=== PATIENT | female | born 1955 | race Caucasian/White ===

== ENCOUNTER 2020-03-31 20:52 | Inpatient (IN) ==
--- OUTSIDE RECORDS SUMMARY | 2020-03-31 20:55 | External Medical Summary | Continuity of Care Document ---
:1955 Author Name Nasima Mckinney Address Unavailable Unavailable , Care Team Providers Name Role Phone Juan José Cesar [email or web address] Problems Active medical history not documented Allergies and Adverse Reactions Allergy history not documented Medications Medications not documented Procedures Procedures not documented Immunizations Immunizations not documented Plan of Treatment Planned Observations Planned Goals not documented Results No Known Results Results not documented Encounters Appointment; Stas Cesar M.D. 20-Sep-2010 10:00 Encounter Diagnosis: Problem not documented
[2020-03-31] MEDS ORDERED: ONDANSETRON INJ 2 MG/ML 2 ML VIAL IV STA ×2 (21:25→22:36)
--- NOTE | 2020-03-31 21:29 | Emergency Department Note ---
History of Present Illness General Chief complaint: Abdominal Pain Stated complaint: ABDOMINAL PAIN,NAUSEA,VOMTING,CHILLS Time Seen by Provider: 03/31/20 21:15 Source: patient History of Present Illness Provider complaint: Abdominal pain Onset (ago): hour(s) Location: abdomen Radiation: back Severity: severe Pain Consistency: + constant Maximum Pain Intensity: 7 Quality: + other (Crampy nauseous pain) Relieved By: + other (Vomiting) Associated symptoms: + fever/chills (She feels warm whenever she gets this pain but does not have a temperature) and + nausea/vomiting; no chest pain and no shortness of breath This is a 64-year-old female presents with abdominal pain for the past 2 hours. She describes it as a crampy pain across her entire abdomen with radiation to her back. It is associated with vomiting. She states that vomiting makes her feel better. She rates her pain a 7 out of 10 in severity. She denies any diarrhea or urinary symptoms. She has had no fevers but states that she feels very warm when she gets these episodes. She states in total she has had 6 episodes of this type of pain. She last had an episode about a month ago. She is scheduled to have a CAT scan next week of her abdomen and pelvis but her pain started 2 hours ago and so she presented here. She feels better now that she is vomited. She denies any surgeries to her abdomen. She denies any chest pain or shortness of breath although has a history of asthma. She denies any cough or cold symptoms or known COVID-19 exposure. Past Med/Surg History Medical History Asthma Social History Preferred Language: Indonesian Feels Safe at Home: Yes Smoking Status: Never smoker Review of Systems See HPI for pertinent positives & negatives. and A total of 10 systems reviewed and were otherwise negative Physical Exam Vital Signs Vital Signs - 24 hr 03/31/20 20:54 03/31/20 21:45 03/31/20 21:56 Temperature 36.5 C Temperature Source Oral Pulse Rate 86 86 82 Pulse Rate [Right] Pulse Rate from SpO2 Sensor 81 Pulse Rhythm Regular Pulse Rhythm [Right] Pulse Strength [Right] Respiratory Rate 16 16 14 Respiratory Effort / Characteristics Respiratory Depth Blood Pressure 179/102 H 186/102 H Blood Pressure [Right Arm] Blood Pressure Mean 127 153 Blood Pressure Mean [Right Arm] Blood Pressure Position [Right Arm] Pulse Oximetry 99 99 98 Oxygen Delivery Method Room Air Room Air Room Air Sepsis Recent Fever Within 48 Hours No Sepsis New/Unexplained Change in Mental Status No Sepsis Action Taken by Nursing No Action Required 03/31/20 22:39 03/31/20 23:28 Temperature Temperature Source Pulse Rate Pulse Rate [Right] 88 90 Pulse Rate from SpO2 Sensor Pulse Rhythm Pulse Rhythm [Right] Regular Regular Pulse Strength [Right] Normal Normal Respiratory Rate 16 16 Respiratory Effort / Characteristics Non-Labored Spontaneous Non-Labored Spontaneous Respiratory Depth Normal Normal Blood Pressure Blood Pressure [Right Arm] 163/93 H 161/97 H Blood Pressure Mean Blood Pressure Mean [Right Arm] 116 118 Blood Pressure Position [Right Arm] Lying Lying Pulse Oximetry 97 97 Oxygen Delivery Method Room Air Room Air Sepsis Recent Fever Within 48 Hours Sepsis New/Unexplained Change in Mental Status Sepsis Action Taken by Nursing Constitutional: Vital signs reviewed. Eyes: Pupils are equal round reactive to light. Conjunctiva are noninjected. ENT: Pharynx is clear without erythema or exudate. Mucous membranes are dry. Neck supple without meningeal signs. Respiratory: Clear to auscultation bilaterally. Breath sounds are equal bilaterally. Cardiovascular: Regular rate and rhythm. No rubs or gallops. GI: Soft, nondistended and nontender. Bowel sounds are present. Musculoskeletal: No peripheral edema. No lower extremity tenderness. Integumentary: No cyanosis. or jaundice. Neurological: The patient is awake and alert. No focal deficits. Psychiatric: Normal affect. Not anxious appearing. Course Administered Medications Ioversol (Optiray 320 100ml) 94 ml IV ONCE PRN PRN Reason: Interaction Checking Stop: 04/04/20 23:23 Last Admin: 03/31/20 23:24 Dose: 94 ml Documented by: [id number] Discontinued Medications Morphine Sulfate (Morphine Sulfate) 4 mg IV NOW STA Stop: 03/31/20 23:42 Last Admin: 03/31/20 23:53 Dose: 4 mg Documented by: [id number] Nitroglycerin (Nitrostat) 0.4 mg SL NOW STA Stop: 03/31/20 22:37 Last Admin: 03/31/20 22:39 Dose: 0.4 mg Documented by: [id number] Nitroglycerin (Nitrostat) Confirm Administered Dose 0.4 mg .ROUTE .STK-MED ONE Stop: 03/31/20 22:38 Last Admin: 03/31/20 22:39 Dose: Not Given Documented by: [id number] Ondansetron HCl (Zofran) 4 mg IV NOW STA Stop: 03/31/20 21:26 Last Admin: 03/31/20 22:00 Dose: 4 mg Documented by: [id number] Ondansetron HCl (Zofran) 4 mg IV NOW STA Stop: 03/31/20 22:37 Last Admin: 03/31/20 22:39 Dose: 4 mg Documented by: [id number] Medical Decision Making Differential Diagnosis Gastritis, PUD, pancreatitis, cholelithiasis, bowel obstruction, kidney stone Medical Records Attestation: I reviewed the patient's medical records. I did perform a limited focused review of portions of the patient's old chart on the electronic medical record. The patient has had no recent pertinent visits to this hospital. Home Medications Current Medication List: was personally reviewed by me Laboratory Data Attestation: I reviewed the patient's lab results. Result diagrams: 03/31/20 21:55 03/31/20 21:55 Lab Results 03/31/20 03/31/20 Range/Units 21:55 21:55 WBC 10.21 (4.8-10.8) K/uL RBC 4.18 L (4.2-5.4) M/uL Hgb 13.5 (12.0-16.0) g/dL Hct 39.3 (37-47) % MCV 94.0 (80-100) fL MCH 32.3 (25-34) pg MCHC 34.4 (32-36) g/dL RDW Std Deviation 46.5 H (36.4-46.3) fL RDW Coeff of Bladimir 13.5 (11.5-14.5) % Plt Count 220 (130-400) K/uL MPV 10.3 (7.4-10.4) fL Immature Gran % (Auto) 0.4 % Neut % (Auto) 73.0 % Lymph % (Auto) 18.9 % [place] % (Auto) 4.9 % Eos % (Auto) 2.4 % Baso % (Auto) 0.4 % Neut # (Auto) 7.45 H (1.4-6.5) K/uL Lymph # (Auto) 1.93 (1.2-3.4) K/uL [place] # (Auto) 0.50 (0.11-0.59) K/uL Eos # (Auto) 0.25 (0-0.5) K/uL Baso # (Auto) 0.04 (0-0.2) K/uL Immature Gran # (Auto) 0.04 H (0.00-0.02) K/uL Sodium 140 (136-145) mmol/L Potassium 3.4 L (3.5-5.1) mmol/L Chloride 104 (98-107) mmol/L Carbon Dioxide 28 (21-32) mmol/L Anion Gap 8.0 (3-11) BUN 25 H (7-18) mg/dl Creatinine 1.11 (0.6-1.2) mg/dl Est Cr Clr Drug Dosing 53.5 ml/min Est GFR ( Amer) 59.9 Est GFR (Non-Af Amer) 51.7 BUN/Creatinine Ratio 22.9 H (10-20) Glucose 113 H (70-99) mg/dl Calcium 9.5 (8.5-10.1) mg/dl Total Bilirubin 0.4 (0.2-1) mg/dl AST 14 L (15-37) U/L ALT 25 (12-78) U/L Alkaline Phosphatase 73 (45-117) U/L Troponin I < 0.015 (0-0.045) ng/ml Total Protein 8.3 H (6.4-8.2) gm/dl Albumin 4.3 (3.4-5.0) gm/dl Globulin 4.0 (2.5-4.0) gm/dl Albumin/Globulin Ratio 1.1 (0.9-2) Lipase 205 (73-393) U/L Imaging Data Attestation: I personally reviewed and interpreted this imaging study as follows: My Impression: Chest x-ray per my interpretation shows no acute cardiopulmonary process. Large hiatal hernia is noted. Radiologist's Impression: CT ABDOMEN & PELVIS With Contrast: There is a large hiatal hernia measuring 14 cm containing approximately one half thing stomach. There is some mild adjacent lower lung atelectasis. Mild fatty infiltration of the liver. No focal liver lesion is seen. The bladder, pancreas, spleen, and adrenal glands appear unremarkable. The kidneys enhance symmetrically with contrast. There is suggestion of several small parapelvic renal cysts on the left measuring up to 1 cm. Bowel loops are nondilated no signs of acute appendicitis. There is mild diverticulosis of the sigmoid colon. No acute inflammatory process is seen wi thin the mesenteric fat of the abdomen or pelvis. The uterus, adnexa, and urinary bladder appear unremarkable. Mild degenerative changes in the lumbar spine. No fracture or bone lesion is seen. Radiologist: Gonzalo Mcintyre MD Study ready at 23:29 and initial results transmitted at 23:54 ECG Data Attestation: I personally reviewed and interpreted this ECG as follows: Indication: + abdominal pain Rate (beats per minute): 80 Rhythm: + normal sinus ECG Intervals/blocks: no First degree AV block and no Left bundle branch block ECG ST segments: + ST depression (Anterolateral); no ST elevation ECG Findings: no PVCs Comparison ECG Date: no prior available Additional Comments: Repeat twelve-lead EKG per my interpretation performed at 2225 shows normal sinus rhythm with a rate of 82 bpm. There are persistent ST depressions in the anterior lateral leads without ST elevations. No PVCs or evidence of bundle branch block. Blood Pressure Blood Pressure Findings: Elevated blood pressure Blood Pressure Disposition: Referred to patients primary care provider [facility] Narrative I did evaluate the patient as noted above. IV access was established. I did treat her with Zofran IV. I did order and personally review the patient's 12- lead EKG as described above. She does have some ST depressions in the anterior lateral leads. No old EKGs available for comparison. She later developed some left upper chest pain. She describes it as a tightness. She felt extremely nauseated and vomited again. I did give her additional Zofran IV. She was also given 1 sublingual nitroglycerin. I did repeat a twelve-lead EKG which per my interpretation shows similar findings as the prior one done today. I was able to get an old EKG from the [facility] and she did have significant ST depressions in the anterior lateral leads in January 29, 2018. On reevaluation her chest pain is resolved with the nitroglycerin. I did order and personally reviewed the images of the patient's chest x-ray as described above. Hiatal hernia is noted by myself. There is no infiltrate. I did order a urine analysis. This is pending. I did order and review the patient's blood work as noted in the electronic medical record. I did order a CT of the abdomen and pelvis. I did review the images myself as well as the radiology report as de scribed above. She has a large hiatal hernia which was visible on x-ray. There is otherwise no acute intra-abdominal process. There is no bowel obstruction or appendicitis. I did reevaluate the patient. She is still having abdominal pain and very nauseated. She was given morphine IV after which she felt better. She is no longer having any chest discomfort. I did recommend hospitalization for further care and evaluation. I did discuss the case with the hospitalist and block and case maker. Impression & Plan Abdominal pain, Hernia, hiatal, Intractable vomiting, Left-sided chest pain, Abnormal ECG Discharge Plan Visit Data Chief Complaint: Abdominal Pain Stated Complaint: ABDOMINAL PAIN,NAUSEA,VOMTING,CHILLS ED Provider: Teto Brooke Discharge Problem: Abdominal pain, Hernia, hiatal, Intractable vomiting, Left-sided chest pain, Abnormal ECG Patient Disposition: Being Evaluated by Hospitalist Forms Stand Alone Forms: [facility] Referrals Referrals: Ling Nolasco DO [Primary Care Provider] -
[2020-03-31 22:28] LABS: Basophils # (auto) 0.04 K/uL (0-0.2); Basophils % (auto) 0.4 %; Eosinophils # (auto) 0.25 K/uL (0-0.5); Eosinophils % (auto) 2.4 %; Hematocrit (blood only) 39.3 % (37-47); Hemoglobin 13.5 g/dL (12.0-16.0); Immature Granulocytes # (auto) 0.04 K/uL (0.00-0.02); Immature Granulocytes % (auto) 0.4 %; Lymphocytes # (auto) 1.93 K/uL (1.2-3.4); Lymphocytes % (auto) 18.9 %; Mean Corpuscular Hemoglobin 32.3 pg (25-34); Mean Corpuscular Hgb Conc 34.4 g/dL (32-36); Mean Platelet Volume 10.3 fL (7.4-10.4); Monocytes % (auto) 4.9 %; Neutrophils # (auto) 7.45 K/uL (1.4-6.5); Platelet Count 220 K/uL (130-400); RDW Coefficient of Variation 13.5 % (11.5-14.5); RDW Standard Deviation 46.5 fL (36.4-46.3); Red Blood Count 4.18 M/uL (4.2-5.4); White Blood Count 10.21 K/uL (4.8-10.8)
[2020-03-31 22:29] LABS: Alanine Aminotransferase 25 U/L (12-78); Albumin Level 4.3 gm/dl (3.4-5.0); Aspartate Aminotransferase 14 U/L (15-37); BUN Creatinine Ratio 22.9 (10-20); Blood Urea Nitrogen 25 mg/dl (7-18); Calcium 9.5 mg/dl (8.5-10.1); Carbon Dioxide 28 mmol/L (21-32); Chloride 104 mmol/L (98-107); Creatinine Clr Calc Pharmacy 53.5 ml/min; Est GFR (African American) 59.9; Est GFR (Non-African American) 51.7; Glucose 113 mg/dl (70-99); Lipase 205 U/L (73-393); Potassium 3.4 mmol/L (3.5-5.1); Sodium 140 mmol/L (136-145)
[2020-03-31 22:32] LABS: Albumin Globulin Ratio 1.1 (0.9-2); Alkaline Phosphatase 73 U/L (45-117); Bilirubin,Total 0.4 mg/dl (0.2-1); Total Protein 8.3 gm/dl (6.4-8.2)
[2020-03-31] MEDS ORDERED: NITROGLYCERIN SL 0.4 MG/TAB TAB SL STA (22:36)
[2020-03-31] MEDS ORDERED: NITROGLYCERIN SL 0.4 MG/TAB TAB ONE (22:37)
[2020-03-31 22:55] LABS: Troponin I < 0.015 ng/ml (0-0.045)
[2020-03-31] MEDS ORDERED: IOVERSOL 100ml IV PRN (23:24)
[2020-03-31] MEDS ORDERED: MoRPHine SULFATE 4 MG/ML 1 ML CARP\\VIAL IV STA (23:41)
--- NOTE | 2020-04-01 02:47 | History and Physical Report ---
DATE OF ADMISSION: 04/01/2020 CHIEF COMPLAINT: Abdominal pain. HISTORY OF PRESENT ILLNESS: This is a 64-year-old female with past medical history significant for impaired fasting glucose, hyperlipidemia, could not tolerate statin, allergic rhinitis, history of coronary artery disease, palpitation, polymyalgia rheumatica, factor V Leiden mutation, iron deficiency anemia, monoclonal paraproteinemia, who presents with abdominal pain. The patient says she has had the abdominal pain before, but since evening she had severe abdominal pain and several episodes of vomiting and some questionable blood in the vomitus. Later in the ER, she also complained of some chest pain relieved with nitro, but patient says she pulled some weights and she had shoulder sprain and she is not bothered about chest pain currently. The patient had a stress test done in 2015 which was unremarkable. CAT scan in the ER showed large hiatal hernia. Denies any headache, no blurred vision, no sore throat, no cough, no shortness of breath. Normal bowel and bladder movements. No rash seen. Currently resting comfortably and hemodynamically stable. ALLERGIES: LIPITOR, LISINOPRIL. PAST MEDICAL HISTORY: As mentioned above. PAST SURGICAL HISTORY: , colonoscopy, dental surgery, breast implants. MEDICATION: Losartan 50 mg p.o. daily. FAMILY HISTORY: Significant for mother had osteoporosis, from blood clots. Mother was positive for factor V Leiden deficiency, mother also had diabetes. Father had colon cancer. SOCIAL HISTORY: Single. No smoking. Alcohol 1-2 glasses of red wine daily. No drug use. REVIEW OF SYSTEMS: As per HPI. Rest of the review of systems negative. PHYSICAL EXAMINATION: GENERAL: The patient is of moderate build, not in acute distress. VITAL SIGNS: Temperature 36.5, pulse 80, respiratory rate 16, blood pressure is 180/103, oxygen 95% on room air. HEENT: No pallor, no icterus. NECK: No JVD, no neck masses. CARDIOVASCULAR: S1, S2 heard. Regular rate and rhythm, no murmur, no gallop. RESPIRATORY SYSTEM: Normal AP diameter. No accessory muscle use. No wheezing, no crackles. ABDOMEN: Soft, bowel sounds present, nontender. No distention. CENTRAL NERVOUS SYSTEM: Cranial nerves II-XII grossly intact, nonfocal. EXTREMITIES: No edema, no erythema. LABORATORY DATA: WBC 10.2, hemoglobin 13.5, hematocrit 39.3, platelets 220. Sodium 140, potassium 3.4, chloride 104, bicarbonate 28, BUN 25, creatinine 1.1, serum glucose 113, calcium 9.5, total bilirubin 0.4, AST 14, ALT 25, alkaline phosphatase 73, troponin I less than 0.015, lipase 205. IMAGING DATA: CT of abdomen and pelvis, large hiatal hernia. Chest x-ray, no acute findings. EKG: Normal sinus rhythm, rate of 80, nonspecific ST abnormalities. ASSESSMENT AND PLAN: This is a 64-year-old female who presents with abdominal pain. 1. Abdominal pain with several episodes of nausea, vomiting. Large hiatal hernia and a question of hematemesis. We will place her on IV Protonix drip. Currently, hemoglobin is stable. We will consult GI in a.m. Keep her n.p.o., IV fluids, IV antiemetics p.r.n., IV Dilaudid p.r.n. 2. Questionable chest pain. The patient says she pulled some weights at home and had shoulder discomfort that is resolved now. She is not worried about it. Initial cardiac enzymes and EKG unremarkable. We will do serial cardiac enzymes and monitor in the med tele. 3. Hypertension. Continue losartan. 4. Prediabetes Follow Ha1bc. 4. Deep venous thrombosis prophylaxis, sequential compression devices for now. 5. Disposition: Admit to [facility]. Level 1 full code. Expect to discharge home and follow with family doctor. DAVID
[2020-04-01] MEDS ORDERED: NITROGLYCERIN SL 0.4 MG/TAB TAB SL PRN (02:59)
[2020-04-01] MEDS ORDERED: ACETAMINOPHEN 325 MG TAB PO PRN (02:59)
[2020-04-01] MEDS: SODIUM CHLORIDE 0.9% 1000ML 1,000 ML IV SCH ×4 (03:15→21:58)
[2020-04-01] MEDS: ONDANSETRON INJ 2 MG/ML 2 ML VIAL IV PRN ×3 (03:21→19:54)
[2020-04-01] MEDS: POTASSIUM CHLORIDE / WTR 10 MEQ/100 ML PLCT IV SCH ×2 (03:53→04:55)
[2020-04-01] MEDS: HYDROmorphone INJ 0.5 MG/0.5 ML SYR IV PRN ×2 (03:53→07:54)
[2020-04-01] MEDS: PANTOprazole 40 MG in DEXTROSE 5% 100 ML IV SCH ×3 (03:54→14:16)
[2020-04-01] MEDS ORDERED: PANTOprazole 40 MG in SYRINGE 0 ML IV ONE (04:00)
[2020-04-01 06:37] LABS: Appearance Urine Clear (Clear); Bacteria Urine Automated Negative (Negative); Bilirubin Urine Negative (Negative); Blood Urine Negative (Negative); Cast Urine Automated 0 /lpf (0-5); Color Urine Yellow; Glucose Urine UA Negative (Negative); Ketones Urine Negative (Negative); Leukocyte Esterase Urine Negative (Negative); Nitrite Urine Negative (Negative); Protein Urine Trace (Negative); RBC Urine Automated 0-4 /hpf (0-4); Specific Gravity Urine > 1.045 (1.000-1.030); Urobilinogen Urine Negative (Negative)
--- NOTE | 2020-04-01 07:39 | Electrocardiogram Report ---
Test Reason : Blood Pressure : / mmHG Vent. Rate : 080 BPM Atrial Rate : 080 BPM P-R Int : 144 ms QRS Dur : 086 ms QT Int : 402 ms P-R-T Axes : 040 025 015 degrees QTc Int : 463 ms Normal sinus rhythm Nonspecific ST abnormality Abnormal ECG No previous ECGs available Confirmed by Peter Ghosh ([id number]) on 04/01/2020 7:39:00 AM Referred By: REFERRED SELF Confirmed By:Peter Ghosh
--- NOTE | 2020-04-01 08:31 | CT Scan Report ---
CT abd pelvis IV con only CLINICAL HISTORY: Generalized abdominal pain COMPARISON STUDY: None. TECHNIQUE: Patient was scanned in a dynamic helical fashion during intravenous administration of 94 c c of Optiray 320. A dose lowering technique was utilized adhering to the principles of ALARA. CT DOSE: 533.27 mGy.cm FINDINGS: Lower chest: There are bilateral breast implants. There is a large hiatal hernia. There is mild basil ar atelectasis. Liver: The contrast-enhanced liver is normal in size, contour, and attenuation. There is no intrahepa tic biliary ductal dilatation. The hepatic veins and portal veins are patent. Gallbladder: Unremarkable. Spleen: Normal in size and attenuation. Pancreas: Unremarkable. Adrenal glands: Unremarkable. Kidneys: There are bilateral parapelvic renal cysts. No solid renal masses are visualized. Bowel: There are no transition zones indicate bowel obstruction. There is colonic diverticulosis. The re are no acute peridiverticular inflammatory changes. There is no evidence of acute appendicitis. Peritoneum: There is no intraperitoneal free air or abdominal ascites. Vasculature: The abdominal aorta is normal in course and caliber. Adenopathy: None. Pelvic viscera: The bladder, and pelvic viscera are unremarkable. Skeletal structures: There is an old fracture the left inferior pubic ramus. No destructive lesions a re visualized. IMPRESSION: 1. Large fluid-filled hiatal hernia 2. No evidence of bowel obstruction. No evidence of free air 3. No evidence of acute diverticulitis. No evidence of acute appendicitis. ACT 112: Negative or not required by law. Electronically signed by: Franco Guzman M.D. 04/01/2020 8:30 AM
[2020-04-01] MEDS: LOSARTAN POTASSIUM 50 MG TAB PO SCH (08:35)
--- NOTE | 2020-04-01 08:35 | XRay Report ---
XR chest 1V portable CLINICAL HISTORY: Atypical chest pain COMPARISON STUDY: No previous studies for comparison. FINDINGS: There is a large hiatal hernia. There are basilar opacities, likely atelectatic. There is n o failure. There is no lobar consolidation.[There are no large pleural effusions. IMPRESSION: 1. Large hiatal hernia 2. Increased basilar markings likely atelectatic ACT 112: Negative or not required by law. Electronically signed by: Franco Guzman M.D. 04/01/2020 8:34 AM
--- NOTE | 2020-04-01 08:51 | Hospitalist Progress Note ---
Date of Service April 01, 2020 Assessment & Plan (1) Abdominal pain: (2) Hernia, hiatal: (3) Intractable vomiting: (4) Left-sided chest pain: Nausea, vomiting and abd pain likely related to hiatal hernia Concern for GI bleeding due to reports of "brownish" or [place] ground Chest pain reported seems musculoskeletal. Trop/EKG unremarkable. Will monitor Will monitor Hb Currently of PPI IV Awaiting GI eval IV zofran. Monitor QTc Continue IVF Await AM labs (5) Hypertension: Pain control Continue home losartan DVT ppx -SCD for now Admission and Anticipated Discharge Date Admission Date: April 01, 2020 Subjective Patient seen and examined Still having nausea and vomiting Reported vomiting has been dark brownish. Still having abdominal pain Reported she had some left sided chest pain during packing. She referred to this as muscle soreness from packing/moving things which have currently resolved Denied any fevers,chills Denied any diarrhea Physical Exam Constitutional: no acute distress Eyes: PERRL, conjunctivae normal, anicteric sclerae ENMT: external ear and nose normal, oropharynx normal Respiratory: normal respiratory effort, lungs clear to auscultation Cardiovascular: RRR, no murmur, no edema Gastrointestinal (Abdomen): Inspection/Auscultation: abdomen normal to inspection and normal bowel sounds; abdomen not distended Percussion/Palpation: + abdomen tender (Mild ) and abdomen soft; no guarding and abdomen not rigid Neurologic: PERRL, EOMI, accommodation nl, no face palsy, no dysarthria Psychiatric: A+Ox3, euthymic affect Results & Data Results & Data ([facility]) Vital Signs (Past 12 Hours) Vital Signs Temp Pulse Pulse Resp BP BP BP 04/01/20 07:47 36.9 C 79 17 164/91 H 04/01/20 02:59 36.4 C L 88 16 175/96 H 04/01/20 02:09 82 16 178/101 H 04/01/20 01:05 80 16 180/103 H 03/31/20 23:28 90 16 161/97 H 03/31/20 22:39 88 16 163/93 H 03/31/20 21:56 82 14 186/102 H 03/31/20 21:45 86 16 03/31/20 20:54 36.5 C 86 16 179/102 H Pulse Ox Pulse Ox 04/01/20 07:47 95 04/01/20 02:59 95 95 04/01/20 02:09 99 04/01/20 01:05 99 03/31/20 23:28 97 03/31/20 22:39 97 03/31/20 21:56 98 03/31/20 21:45 99 03/31/20 20:54 99 Laboratory Results Laboratory Results - last 24 hr 03/31/20 03/31/20 04/01/20 21:55 21:55 06:18 WBC 10.21 RBC 4.18 L Hgb 13.5 Hct 39.3 MCV 94.0 MCH 32.3 MCHC 34.4 RDW Std Deviation 46.5 H RDW Coeff of Bladimir 13.5 Plt Count 220 MPV 10.3 Immature Gran % (Auto) 0.4 Neut % (Auto) 73.0 Lymph % (Auto) 18.9 [place] % (Auto) 4.9 Eos % (Auto) 2.4 Baso % (Auto) 0.4 Neut # (Auto) 7.45 H Lymph # (Auto) 1.93 [place] # (Auto) 0.50 Eos # (Auto) 0.25 Baso # (Auto) 0.04 Immature Gran # (Auto) 0.04 H Sodium 140 Potassium 3.4 L Chloride 104 Carbon Dioxide 28 Anion Gap 8.0 BUN 25 H Creatinine 1.11 Est Cr Clr Drug Dosing 53.5 Est GFR ( Amer) 59.9 Est GFR (Non-Af Amer) 51.7 BUN/Creatinine Ratio 22.9 H Glucose 113 H Calcium 9.5 Total Bilirubin 0.4 AST 14 L ALT 25 Alkaline Phosphatase 73 Troponin I < 0.015 Total Protein 8.3 H Albumin 4.3 Globulin 4.0 Albumin/Globulin Ratio 1.1 Lipase 205 Urine Color Yellow Urine Appearance Clear Urine pH 7.0 Ur Specific [place] > 1.045 H Urine Protein Trace H Urine Glucose (UA) Negative Urine Ketones Negative Urine Blood Negative Urine Nitrite Negative Urine Bilirubin Negative Urine Urobilinogen Negative Ur Leukocyte Esterase Negative Urine WBC (Auto) 1-5 Urine RBC (Auto) 0-4 U Hyaline Cast (Auto) 0 U Epithel Cells (Auto) 10-20 H Urine Bacteria (Auto) Negative Diagnostic Findings CT Abd/P 1. Large fluid-filled hiatal hernia 2. No evidence of bowel obstruction. No evidence of free air 3. No evidence of acute diverticulitis. No evidence of acute appendicitis. (1) Intractable vomiting Nausea presence: with nausea Vomiting type: unspecified Qualified Code(s): R11.2 - Nausea with vomiting, unspecified (2) Abdominal pain Abdominal location: generalized Qualified Code(s): R10.84 - Generalized abdominal pain
[2020-04-01 08:58] LABS: Basophils # (auto) 0.04 K/uL (0-0.2); Basophils % (auto) 0.5 %; Eosinophils # (auto) 0.05 K/uL (0-0.5); Eosinophils % (auto) 0.6 %; Immature Granulocytes # (auto) 0.01 K/uL (0.00-0.02); Immature Granulocytes % (auto) 0.1 %; Lymphocytes # (auto) 1.28 K/uL (1.2-3.4); Lymphocytes % (auto) 16.1 %; Mean Corpuscular Hgb Conc 33.3 g/dL (32-36); Mean Platelet Volume 10.3 fL (7.4-10.4); Monocytes # (auto) 0.67 K/uL (0.11-0.59); Monocytes % (auto) 8.4 %; Neutrophils # (auto) 5.91 K/uL (1.4-6.5); Neutrophils % (auto) 74.3 %; Platelet Count 210 K/uL (130-400); RDW Coefficient of Variation 13.6 % (11.5-14.5); RDW Standard Deviation 47.3 fL (36.4-46.3); Red Blood Count 3.75 M/uL (4.2-5.4); White Blood Count 7.96 K/uL (4.8-10.8)
[2020-04-01] MEDS ORDERED: PANTOprazole 40 MG in SYRINGE 0 ML IV SCH ×2 (09:00→21:00)
[2020-04-01 09:35] LABS: BUN Creatinine Ratio 20.9 (10-20); Blood Urea Nitrogen 18 mg/dl (7-18); Calcium 8.4 mg/dl (8.5-10.1); Carbon Dioxide 28 mmol/L (21-32); Chloride 107 mmol/L (98-107); Est GFR (African American) 83.9; Est GFR (Non-African American) 72.4; Glucose 146 mg/dl (70-99); Magnesium 2.1 mg/dl (1.8-2.4); Sodium 140 mmol/L (136-145); Troponin I < 0.015 ng/ml (0-0.045)
--- NOTE | 2020-04-01 11:04 | Gastrointestinal Consultation ---
Date of Consultation April 01, 2020 Assessment & Plan (1) Intractable vomiting: Patient with large hiatal hernia and vomiting, needs urgent EGD to r/o Gastric volvulus. Continue IV PPI. Eventually she will need surgical repair. (2) Abdominal pain: (3) Hernia, hiatal: History of Present Illness Attending Physician: Cici Salinas MD 64 years old female patient with medical comorbids of HTN, presented to the hospital with sudden onset severe epigastric pain with nausea and intractable vomiting and an episode of hematemesis. Pain is sharp, nonradiating, seems it got aggravated after heavy lifting. Still has vomiting today. No prior EGD. CT scan showed large hiatal hernia filled with fluid. PMHx: hyperlipidemia, coronary artery disease, polymyalgia rheumatica, factor V Leiden mutation. PAST SURGICAL HISTORY: , colonoscopy, dental surgery, breast implants. MEDICATION: Losartan 50 mg p.o. daily. FAMILY HISTORY: Noncontributory. SOCIAL HISTORY: No smoking or alcohol abuse. Allergies Allergy/AdvReac Type Severity Reaction Status Date / Time No Known Allergies Allergy Unverified 04/01/20 00:25 Home Medications Home Medications Medication Instructions Recorded Confirmed Type losartan 50 mg PO DAILY 04/01/20 04/01/20 History Patient History Medical History Asthma Social History Preferred Language: [place] Communication Ability: Effective It Senior Analyst Required: No Beliefs That Will Affect Care: None Current Living Situation: Significant Other Other Information That Helps Us Care for You: No Feels Safe at Home: Yes Safety Concerns: Feels Safe At This Time Smoking Status: Never smoker Do You Dip or Chew Tobacco: No ; Second Hand Exposure: No ; Tobacco Cessation Education Requested by Patient: No Hx Alcohol Use: Yes Alcohol type: beer Hx Substance Use: No Review of Systems Constitutional: no fever, no chills, no fatigue and no weight loss Eyes: no eye pain and no worsening vision Ear, Nose, Mouth, Throat: no tinnitus, no dizziness, no nasal discharge and no epistaxis Respiratory: no cough, no dyspnea, no dyspnea on exertion and no wheezing Cardiovascular: no chest pain, no orthopnea, no palpitations and no edema Gastrointestinal: as per Subjective / HPI Genitourinary: no dysuria, no urinary frequency, no urinary incontinence and no hematuria Musculoskeletal: no stiffness and no myalgia Neurologic: no localized weakness, no paralysis, no tremor(s) and no headache(s) Endocrine: no polydipsia and no polyuria Hematologic / Lymphatic: no easy bleeding and no night sweats Physical Exam Constitutional: + well hydrated, cooperative and comfortable Eyes: PERRL, conjunctivae normal, anicteric sclerae ENMT: external ear and nose normal, oropharynx normal Neck: normal visual inspection and trachea midline Respiratory: normal respiratory effort, lungs clear to auscultation Auscultation: no wheezes Cardiovascular: RRR, no murmur, no edema Gastrointestinal (Abdomen): normal bowel sounds, soft, nontender, no hepatosplenomegaly Musculoskeletal: no cyanosis or clubbing, extremities motor strength 5/5 Skin: no rashes, warm and dry Neurologic: awake; no focal motor deficits Motor/Sensory: no tremor Results & Data ([facility]) Vital Signs (Past 12 Hours) Vital Signs Temp Pulse Pulse Resp BP BP BP 04/01/20 07:50 78 04/01/20 07:47 36.9 C 79 17 164/91 H 04/01/20 02:59 36.4 C L 88 16 175/96 H 04/01/20 02:09 82 16 178/101 H 04/01/20 01:05 80 16 180/103 H 03/31/20 23:28 90 16 161/97 H Pulse Ox Pulse Ox 04/01/20 07:50 04/01/20 07:47 95 04/01/20 02:59 95 95 04/01/20 02:09 99 04/01/20 01:05 99 03/31/20 23:28 97 (1) Intractable vomiting Nausea presence: with nausea Vomiting type: unspecified Qualified Code(s): R11.2 - Nausea with vomiting, unspecified (2) Abdominal pain Abdominal location: generalized Qualified Code(s): R10.84 - Generalized abdominal pain
[2020-04-01 11:09] LABS: Estimated Average Glucose 126 mg/dl
[2020-04-01] MEDS ORDERED: ONDANSETRON INJ 2 MG/ML 2 ML VIAL ONE (12:03)
[2020-04-01] MEDS ORDERED: SUCCINYLCHOLINE 100MG/5ML SYR IV ONE (12:03)
[2020-04-01] MEDS ORDERED: fentaNYL citrate 100 MCG/2 ML VIAL ONE (12:03)
[2020-04-01] MEDS ORDERED: LIDOCAINE HCL 2% 2 ML VIAL/AMP(20MG/ML) INFIL ONE (12:03)
[2020-04-01] MEDS ORDERED: PROPOFOL IV EMULSION 10 MG/ML 20 ML VIAL IV ONE (12:03)
--- NOTE | 2020-04-01 12:15 | Anesthesiology Consultation ---
Date of Service April 01, 2020 Assessment & Plan Chart Review Chart Review: Acceptable Risk for Surgery and Patient NOT seen in Pre Admission Testing Consults Requested none ASA [id number] Proposed Anesthesia Anesthesia Type: General Risk / Benefits Reviewed With: PT / POA / Parent / Guardian, Accepts Plan and Informed Consent Obtained Additional Comments: not covid tested History Surgery Operation Date: 04/01/20 12:00 Proposed Procedures p EGD Hemostasis - Juan Gonsalez MD Height/Weight Height: 5 ft 6 in Weight: 79.4 kg Allergies Allergy/AdvReac Type Severity Reaction Status Date / Time No Known Allergies Allergy Unverified 04/01/20 00:25 Medications Home Medications Medication Instructions Recorded Confirmed Last Taken losartan 50 mg PO DAILY 04/01/20 04/01/20 Unknown Active Medications Generic Name Dose Route Start Last Admin Trade Name Freq PRN Reason Stop Dose Admin Acetaminophen 650 mg 04/01/20 02:59 04/01/20 06:15 Tylenol PO 05/01/20 02:58 650 mg Q4H PRN Administration Pain or Fever Hydromorphone HCl 0.5 mg 04/01/20 02:59 04/01/20 07:54 Dilaudid IV 04/15/20 02:58 0.5 mg Q4H PRN Administration Pain Sodium Chloride 1,000 mls @ 125 mls/hr 04/01/20 02:59 04/01/20 11:29 Nss 1000ml IV 05/01/20 02:58 125 mls/hr .Q8H NUNU Administration Pantoprazole Sodium 40 mg/ 100 mls @ 20 mls/hr 04/01/20 04:00 04/01/20 08:35 Dextrose IV 05/01/20 03:14 8 mg/hr Q5H NUNU 20 mls/hr Administration 8 MG/HR Losartan Potassium 50 mg 04/01/20 09:00 04/01/20 08:35 Cozaar PO 05/01/20 08:59 50 mg DAILY NUNU Administration Ondansetron HCl 4 mg 04/01/20 02:59 04/01/20 10:43 Zofran IV 05/01/20 02:58 4 mg Q6H PRN Administration Nausea NPO Date Last Intake of Fluids: 04/01/20 Time Last Intake of Fluids: 08:30 Last Intake of Fluids Comment: sip with AM medication Past Medical History Medical History Asthma Exercise / Class Metabolic Activity II 4-5 Yardwork/Stairs/Walk up hill Past Anesthesia History No Hx of Anesthesia Complications and No Family Hx of Anesthesia Complications History of PONV No Hx of PONV and No Hx of Motion Sickness Social History Smoking Status: Never smoker Do You Dip or Chew Tobacco: No Hx Alcohol Use: Yes Alcohol type: beer alcohol intake frequency: 0-2 drinks per day Hx Substance Use: No substance use type: does not use Physical Exam Vital Signs Last Vital Signs Temp 36.7 C 04/01/20 11:25 Pulse 80 04/01/20 11:25 Resp 17 04/01/20 11:25 BP 160/84 H 04/01/20 11:25 Pulse Ox 93 04/01/20 11:25 Constitutional + obese ENMT Mouth: + dental restorations; no dentition abnormality Thyromental Distance: > or= 3.5 Finger Breadths Mallampati Class: II Neck normal visual inspection and trachea midline; neck extension not limited Respiratory normal respiratory effort Auscultation: lungs clear to auscultation bilaterally Cardiovascular Rate/Rhythm: regular rate and regular rhythm Heart Sounds: no murmur Vessels: no carotid bruit Musculoskeletal Spine: normal cervical ROM Extremities: extremities normal to inspection Neurologic moves all extremities Motor/Sensory: no sensory deficit Psychiatric Orientation: alert and oriented x 3 Testing Laboratory Results 04/01/20 08:45 04/01/20 08:45 Hemoglobin A1c 6.0 % (4.5-5.6) H 04/01/20 08:45 Urine Color Yellow 04/01/20 06:18 Urine Appearance Clear (Clear) 04/01/20 06:18 Urine pH 7.0 (4.5-7.5) 04/01/20 06:18 Ur Specific [place] > 1.045 (1.000-1.030) H 04/01/20 06:18 Urine Protein Trace (Negative) H 04/01/20 06:18 Urine Glucose (UA) Negative (Negative) 04/01/20 06:18 Urine Ketones Negative (Negative) 04/01/20 06:18 Urine Nitrite Negative (Negative) 04/01/20 06:18 Ur Leukocyte Esterase Negative (Negative) 04/01/20 06:18 Urine WBC (Auto) 1-5 /hpf (0-5) 04/01/20 06:18 Urine RBC (Auto) 0-4 /hpf (0-4) 04/01/20 06:18 U Hyaline Cast (Auto) 0 /lpf (0-5) 04/01/20 06:18 U Epithel Cells (Auto) 10-20 /lpf (0-5) H 04/01/20 06:18 Urine Bacteria (Auto) Negative (Negative) 04/01/20 06:18 Electrocardiogram Date: 03/31/20 Findings: + NSR @ (at 80;NS ST abnl) Chest X-Ray Date: 03/31/20 Findings: + NAD large hiatal hernia
--- NOTE | 2020-04-01 12:25 | History & Physical Bridge Note ---
Date of Service April 01, 2020 History & Physical Bridge Note I have examined the patient, reviewed the History & Physical and in the interval since the performance of the History & Physical I have noted the following changes of clinical significance: no changes noted
[2020-04-01] MEDS ORDERED: DEXAMETHASONE SOD INJ 4 MG/ML VIAL ONE (12:43)
[2020-04-01] MEDS ORDERED: METOCLOPRAMIDE HCL INJ 5 MG/ML 2 ML VIAL IV STA (13:08)
[2020-04-01] MEDS ORDERED: METOCLOPRAMIDE HCL INJ 5 MG/ML 2 ML VIAL ONE (13:08)
--- NOTE | 2020-04-01 13:12 | Operative Report ---
Post Operative Report Pre & Post Diagnosis Operation Date: 04/01/20 12:00 Pre-Op Diagnosis: Abdominal Pain Post-Op Diagnosis: Abdominal Pain I identified the patient and participated in the time-out.: Yes Procedure Operation Date: 04/01/20 12:00 Actual Procedures p EGD Hemostasis(Not Applicable) - Juan Gonsalez MD Surgeon Juan Gonsalez MD Flash Welding Machine Operator None Estimated Blood Loss 0 Findings See Below (Large hiatal hernia, few gastric ulcers) Specimens None Description of Procedure EGD I attest to the content of the Intraoperative Record and any orders documented therein. Any exceptions are noted below.
[2020-04-01] MEDS ORDERED: NALOXONE HCL 0.4 MG/1 ML VIAL/CARP IV PRN (13:43)
[2020-04-01] MEDS ORDERED: PROMETHAZINE HCL 12.5 MG in SODIUM CHLORIDE 0.9% 50 ML IV PRN (13:43)
[2020-04-01] MEDS ORDERED: ATROPINE SULFATE 0.1 MG/ML 10ML SYR IV PRN (13:43)
[2020-04-01] MEDS ORDERED: FLUMAZENIL 0.1 MG/1 ML 10 ML VIAL IV PRN (13:43)
[2020-04-01] MEDS ORDERED: LABETALOL HCL IV 5 MG/ML 20ML IV PRN (13:43)
[2020-04-01] MEDS ORDERED: ePHEDrine sulfate 50 MG/ML AMP IV PRN (13:43)
[2020-04-01] MEDS ORDERED: fentaNYL citrate 100 MCG/2 ML VIAL IV PRN (13:43)
--- NOTE | 2020-04-01 13:58 | Anesthesiology Progress Note ---
Date of Service April 01, 2020 Anesthesia Post Procedure Vital Signs Vital Signs: Temp Pulse Pulse Pulse Resp BP BP 04/01/20 13:45 82 18 147/81 H 04/01/20 13:39 36.0 C L 90 13 126/80 04/01/20 12:12 18 178/110 H 04/01/20 11:25 36.7 C 80 17 160/84 H 04/01/20 07:50 78 04/01/20 07:47 36.9 C 79 17 164/91 H 04/01/20 02:59 36.4 C L 88 16 175/96 H 04/01/20 02:09 82 16 178/101 H 04/01/20 01:05 80 16 03/31/20 23:28 90 16 03/31/20 22:39 88 16 03/31/20 21:56 82 14 186/102 H 03/31/20 21:45 86 16 03/31/20 20:54 36.5 C 86 16 179/102 H BP Pulse Ox Pulse Ox 04/01/20 13:45 97 04/01/20 13:39 93 04/01/20 12:12 95 04/01/20 11:25 93 04/01/20 07:50 04/01/20 07:47 95 04/01/20 02:59 95 95 04/01/20 02:09 99 04/01/20 01:05 180/103 H 99 03/31/20 23:28 161/97 H 97 03/31/20 22:39 163/93 H 97 03/31/20 21:56 98 03/31/20 21:45 99 03/31/20 20:54 99 Pain Intensity Abdomen: Pain Intensity: 7 Transfer of Care Handoff Completed per policy Notes Mental Status: alert / awake / arousable Patient Amnestic to Procedure: Yes Nausea / Vomiting: adequately controlled Pain: adequately controlled Airway Patency, RR, SpO2: stable & adequate BP & HR: stable & adequate Hydration State: stable & adequate Anesthetic Complications: no major complications apparent
--- NOTE | 2020-04-01 14:22 | GI REPORT ---
Patient Name: Ivy Altamirano Procedure Date: 04/01/2020 12:05 PM Date of : 1955 Admit Type: Inpatient Age: 64 Gender: Female Attending MD: Juan Gonsalez MD Procedure: Upper GI endoscopy Providers: Juan Gonsalez MD Referring MD: Cici Salinas Md Indications: Hematemesis, Abnormal CT of the GI tract Medicines: General Anesthesia Complications: No immediate complications. Estimated Blood Loss: Estimated blood loss: none. Procedure: Pre-Anesthesia Assessment: - Prior to the procedure, a History and Physical was performed, and patient medications, allergies and sensitivities were reviewed. The patient's tolerance of previous anesthesia was reviewed. - The risks and benefits of the procedure and the sedation options and risks were discussed with the patient. All questions were answered and informed consent was obtained. - Patient identification and proposed procedure were verified prior to the procedure by the physician and the nurse. The procedure was verified in the procedure room. - Pre-procedure physical examination revealed no contraindications to sedation. After obtaining informed consent, the endoscope was passed under direct vision. Throughout the procedure, the patient's blood pressure, pulse, and oxygen saturations were monitored continuously. The Endoscope was introduced through the mouth, and advanced to the second part of duodenum. The upper GI endoscopy was accomplished without difficulty. The patient tolerated the procedure well. Findings: The Z-line was regular and was found 35 cm from the incisors. The esophagus was shortened and tortous. 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 A 5 cm hiatal hernia was found. A medium amount of food (residue) was found in the gastric fundus precluding adequate visualization. . Multiple non-bleeding erosions were found in the gastric body and in the gastric antrum. There were no stigmata of recent bleeding. One non-bleeding cratered gastric ulcer with no stigmata of bleeding was found in the gastric antrum. The lesion was 8 mm in largest dimension. The duodenal bulb and second portion of the duodenum were normal. Impression: - 5 cm hiatal hernia. No gastric volvulous. - A medium amount of food (residue) in the stomach. - Non-bleeding gastric ulcer with no stigmata of bleeding. - Normal duodenal bulb and second portion of the duodenum. Recommendation: - [facility] patient to [facility]. - Clear liquid diet today, then advance as tolerated to full liquid diet then should stay on soft diet till she gets surgical hiatal hernia repair. - Use a proton pump inhibitor IV daily for today then switch to a proton pump inhibitor PO BID for 2 months. - Use metoclopramide 10 mg PO BID for 2 weeks. - Repeat upper endoscopy in 6 weeks to check healing. - Refer to an MIS surgeon at [facility] [place] for hiatal hernia repair. - Avoid NSAIDs. - Recall GI if needed. Juan Gonsalez MD 04/01/2020 2:22:06 PM This report has been signed electronically. Note Initiated On: 04/01/2020 12:05 PM Number of Addenda: 0 I attest to the content of the Intraoperative Record and orders documented therein, exceptions below {[id number]}
[2020-04-01] MEDS ORDERED: HYDROmorphone INJ 0.5 MG/0.5 ML SYR IV PRN (16:07)
[2020-04-01] MEDS ORDERED: TRAMADOL HCL 50 MG TABLET PO PRN (21:29)
[2020-04-02] MEDS: SODIUM CHLORIDE 0.9% 1000ML 1,000 ML IV SCH (06:03)
[2020-04-02 06:09] LABS: Hematocrit (blood only) 29.3 % (37-47); Hemoglobin 9.7 g/dL (12.0-16.0); Mean Corpuscular Hemoglobin 32.6 pg (25-34); Mean Corpuscular Hgb Conc 33.1 g/dL (32-36); Mean Corpuscular Volume 98.3 fL (80-100); Mean Platelet Volume 10.2 fL (7.4-10.4); Platelet Count 172 K/uL (130-400); RDW Coefficient of Variation 13.7 % (11.5-14.5); RDW Standard Deviation 48.9 fL (36.4-46.3); Red Blood Count 2.98 M/uL (4.2-5.4); White Blood Count 10.04 K/uL (4.8-10.8)
[2020-04-02 06:48] LABS: BUN Creatinine Ratio 14.3 (10-20); Calcium 7.2 mg/dl (8.5-10.1); Creatinine Clr Calc Pharmacy 80.9 ml/min; Est GFR (African American) 99.5; Est GFR (Non-African American) 85.8; Potassium 3.7 mmol/L (3.5-5.1)
[2020-04-02] MEDS ORDERED: METOCLOPRAMIDE HCL 5 MG/5 ML UDP PO SCH (08:00)
[2020-04-02] MEDS: LOSARTAN POTASSIUM 50 MG TAB PO SCH (08:39)
--- NOTE | 2020-04-02 08:45 | Discharge Summary ---
Date of Service April 02, 2020 Admission HPI Per Admitting Provider 64-year-old female with past medical history significant for impaired fasting glucose, hyperlipidemia, could not tolerate statin, allergic rhinitis, history of coronary artery disease, palpitation, polymyalgia rheumatica, factor V Leiden mutation, iron deficiency anemia, monoclonal paraproteinemia, who presents with abdominal pain. The patient says she has had the abdominal pain before, but since evening she had severe abdominal pain and several episodes of vomiting and some questionable blood in the vomitus. Later in the ER, she also complained of some chest pain relieved with nitro, but patient says she pulled some weights and she had shoulder sprain and she is not bothered about chest pain currently. The patient had a stress test done in 2016 which was unremarkable. CAT scan in the ER showed large hiatal hernia. Denies any headache, no blurred vision, no sore throat, no cough, no shortness of breath. Normal bowel and bladder movements. No rash seen. Currently resting comfortably and hemodynamically stable. Admission Exam Per Admitting Provider GENERAL: The patient is of moderate build, not in acute distress. VITAL SIGNS: Temperature 36.5, pulse 80, respiratory rate 16, blood pressure is 180/103, oxygen 95% on room air. HEENT: No pallor, no icterus. NECK: No JVD, no neck masses. CARDIOVASCULAR: S1, S2 heard. Regular rate and rhythm, no murmur, no gallop. RESPIRATORY SYSTEM: Normal AP diameter. No accessory muscle use. No wheezing, no crackles. ABDOMEN: Soft, bowel sounds present, nontender. No distention. CENTRAL NERVOUS SYSTEM: Cranial nerves II-XII grossly intact, nonfocal. EXTREMITIES: No edema, no erythema. Principal Diagnosis Hiatal hernia Gastric ulcer Discharge Exam Constitutional no acute distress Eyes PERRL, conjunctivae normal, anicteric sclerae ENMT external ear and nose normal, oropharynx normal Respiratory normal respiratory effort, lungs clear to auscultation Cardiovascular RRR, no murmur, no edema Gastrointestinal (Abdomen) Inspection/Auscultation: abdomen normal to inspection and normal bowel sounds; abdomen not distended Percussion/Palpation: abdomen soft; abdomen nontender Neurologic PERRL, EOMI, accommodation nl, no face palsy, no dysarthria Psychiatric A+Ox3, euthymic affect Discharge Data Allergies Allergy/AdvReac Type Severity Reaction Status Date / Time No Known Allergies Allergy Unverified 04/01/20 00:25 Consultations 04/01/20 00:04 ED Decision to Admit Stat 04/01/20 02:59 Consult Case Management - Discharge Planning Routine 04/01/20 08:00 Consult Gastroenterology Routine Procedures Performed Operation Date: 04/01/20 12:00 Actual Procedures p EGD Hemostasis(Not Applicable) - Juan Gonsalez MD Ordered Studies 03/31/20 21:25 CT abd pelvis IV con only Urgent FINDINGS: Lower chest: There are bilateral breast implants. There is a large hiatal hernia. There is mild basilar atelectasis. Liver: The contrast-enhanced liver is normal in size, contour, and attenuation. There is no intrahepatic biliary ductal dilatation. The hepatic veins and portal veins are patent. Gallbladder: Unremarkable. Spleen: Normal in size and attenuation. Pancreas: Unremarkable. Adrenal glands: Unremarkable. Kidneys: There are bilateral parapelvic renal cysts. No solid renal masses are visualized. Bowel: There are no transition zones indicate bowel obstruction. There is colonic diverticulosis. There are no acute peridiverticular inflammatory changes. There is no evidence of acute appendicitis. Peritoneum: There is no intraperitoneal free air or abdominal ascites. Vasculature: The abdominal aorta is normal in course and caliber. Adenopathy: None. Pelvic viscera: The bladder, and pelvic viscera are unremarkable. Skeletal structures: There is an old fracture the left inferior pubic ramus. No destructive lesions are visualized. IMPRESSION: 1. Large fluid-filled hiatal hernia 2. No evidence of bowel obstruction. No evidence of free air 3. No evidence of acute diverticulitis. No evidence of acute appendicitis. Hospital Course (1) Abdominal pain: (2) Hernia, hiatal: (3) Intractable vomiting: (4) Left-sided chest pain: Nausea, vomiting and abd pain related to hiatal hernia and gastric ulcer CT abd/pelvis showed large hiatal hernia. Due to concern for GI bleeding due to reports of "brownish" or cofffee ground, patient had EGD EGD showed hiatal hernia and a nonbleeding gastric ulcer. Was initially placed on PPI drip. Nausea and vomiting were managed with medications All patient's symptoms have resovled this AM Discharged on pantoprazole 40mg bid for 2 months and metocloperamide bid per GI recommendations. Patient needs follow up with General surgery for evaluation of hiatal hernia options (5) Hypertension: Continue home losartan Total Time Total Time Spent Total Time Spent (In Minutes): 35 Total Time Includes: Examination of the Patient, Discharge Planning and Medication Reconciliation Discharge Plan Discharge Items Patient Disposition: Home - Self-Care Reason For Visit: ABDOMINAL PAIN Discharge Diagnosis: Hiatal hernia Gastric ulcer Activity: Resume your previous activity Non-emergency contact: Primary Care Provider, Surgeon and Speech Pathologist Call non-emergency contact if: you have any medication questions Follow-up/Referrals: Ling Nolasco, [Primary Care Provider] - Diet: Heart Healthy Diet Texture: Dental soft (bite-sized) Addtl Attending Provider Instructions: Ms Altamirano. You came to the hospital complaining of severe nausea, vomiting and abdominal pain. You were evaluated, also had endoscopy (EGD) and found to have hiatal hernia and stomach ulcer. Your symptoms were managed with medications. You are being discharged on new medications (Pantoprazole 40mg twice daily for 2 months and metocloperamide) Please follow up with General surgeon for evaluation for possible repair of the hiatal hernia. Please follow up with Gastroenterology. It was a pleasure taking care of you. Pending Studies at Discharge: No Stand-Alone Forms: [employer], Smoking Cessation Medications and DC Order Prescriptions: New metoclopramide HCl 5 mg/5 mL Solution 5 mg PO BID@0730,1630 7 Days Qty: 473 RF: 0 pantoprazole 40 mg Tablet,Delayed Release (Dr/Ec) 40 mg PO BID 60 Days Qty: 120 RF: 0 Continued losartan 50 mg tablet 50 mg PO DAILY RF: 0 Discharge Orders: Discharge Order (Routine); Ordered 04/02/20 Ordered By: Cici Salinas Admission Data Admit Date/Time: 04/01/20 01:19 Attending Provider: Cici Salinas I. Admit Provider: Michael Cuevas Primary Care Provider: Ling Nolasco Other Providers: Michael High ; Michael Cuevas ; Corby Irene ; Brandie Lin ; Latasha Daniels ; Scarlett Marks ; Igor Jacob ; Geina Bellamy ; Dorota Townsend ; Juliane Gil ; Stas Spivey ; Kye Ward ; Carol Cook ; Lisa Weinberg ; Le Olivera ; Rosie Goncalves ; Juan Gonsalez Other Interventions: Discharge Summary Assessment (RN) Last Done: 04/02/20 12:00 DC Date/Time DO NOT enter until pt leaves facility: 04/02/20 13:02
[2020-04-02] MEDS ORDERED: PANTOprazole 40 MG TAB PO SCH (09:00)
--- NOTE | 2020-04-02 13:04 | Electrocardiogram Report ---
Test Reason : Blood Pressure : / mmHG Vent. Rate : 079 BPM Atrial Rate : 079 BPM P-R Int : 142 ms QRS Dur : 084 ms QT Int : 418 ms P-R-T Axes : 071 077 074 degrees QTc Int : 479 ms Normal sinus rhythm Normal ECG When compared with ECG of 31-MAR-2020 21:42, Nonspecific ST abnormality has resolved Confirmed by Igor Berry ([id number]) on 04/02/2020 1:04:46 PM Referred By: REFERRED SELF Confirmed By:Igor Berry
== END 2020-04-02 13:02 | disposition home or self-care (01) | DRG 392 ==
LOC: ED 20:52 → 2N 04-01 01:19 → SUATTDRO 04-01 01:19 → 2N 04-01 02:09

== ENCOUNTER 2023-01-03 21:25 | Inpatient (IN) ==
[2023-01-03] MEDS ORDERED: SODIUM CHLORIDE 0.9% 1000ML 1,000 ML IV ONE (21:47)
[2023-01-03 22:25] LABS: Basophils # (auto) 0.09 K/uL (0-0.2); Basophils % (auto) 1.1 %; Eosinophils # (auto) 0.23 K/uL (0-0.50); Eosinophils % (auto) 2.8 %; Hematocrit (blood only) 35.4 % (37.0-47.0); Hemoglobin 12.2 g/dl (12.0-16.0); Immature Granulocytes # (auto) 0.05 K/uL (0.01-0.20); Immature Granulocytes % (auto) 0.6 %; Lymphocytes # (auto) 1.96 K/uL (1.2-3.4); Lymphocytes % (auto) 24.1 %; Mean Corpuscular Hemoglobin 33.1 pg (25.0-34.0); Mean Corpuscular Hgb Conc 34.5 g/dL (32.0-36.0); Mean Corpuscular Volume 95.9 fL (80.0-100.0); Mean Platelet Volume 10.1 fL (9.4-12.4); Monocytes # (auto) 0.45 K/uL (0.11-0.59); Monocytes % (auto) 5.5 %; Neutrophils # (auto) 5.36 K/uL (1.40-6.50); Neutrophils % (auto) 65.9 %; Platelet Count 207 K/uL (130-400); RDW Coefficient of Variation 13.9 % (11.5-14.5); RDW Standard Deviation 48.9 fL (36.4-46.3); Red Blood Count 3.69 M/uL (4.20-5.40); White Blood Count 8.14 K/ul (4.8-10.8)
--- NOTE | 2023-01-03 22:43 | XRay Report ---
LEFT TIBIA AND FIBULA 2 VIEWS; LEFT ANKLE 2 VIEWS CLINICAL HISTORY: Left leg injury and deformity. FINDINGS: Crosstable AP and lateral views of the left tibia and fibula with crosstable AP and lateral views of the left ankle are obtained. No prior studies are available for comparison at the time of d ictation. The skeletal structures are osteopenic. There is a displaced and comminuted spiral fracture of the distal tibial diaphysis. There is lateral displacement of the distal fragment by up to 1.5 cm , as well as overriding of the fragments. There is also a displaced and comminuted spiral fracture of the distal fibular shaft. The proximal tibia and fibula appear intact. No fracture is seen at the an kle joint. There has been buttress plate fixation of the distal fibular shaft. The orthopedic hardwar e appears intact. The ankle mortise is intact. The knee joint is grossly maintained. There is a dorsa l calcaneal enthesophyte. IMPRESSION: Displaced and comminuted spiral fractures of the distal tibial and fibular shafts as abov e with overlying soft tissue edema. Electronically signed by: Ahmet Rojas M.D. 01/03/2023 10:41 PM
[2023-01-03 22:49] LABS: Albumin Globulin Ratio 1.4 (0.9-2); Albumin Level 4.4 gm/dl (3.4-5.0); BUN Creatinine Ratio 19.8 (10-20); Bilirubin,Total 0.4 mg/dl (0.2-1.0); Est GFR (African American) 69.9 ml/min; Est GFR (Non-African American) 60.3 ml/min; Globulin 3.2 gm/dl (2.5-4.0); Potassium 4.3 mmol/L (3.5-5.1); Total Protein 7.6 gm/dl (6.0-8.3)
[2023-01-03] MEDS ORDERED: MoRPHine SULFATE 4 MG/ML 1 ML CARP\\VIAL IV STA (23:27)
[2023-01-03] MEDS ORDERED: ONDANSETRON INJ 2 MG/ML 2 ML VIAL IV STA (23:27)
--- NOTE | 2023-01-04 00:11 | Emergency Department Note ---
Impression & Plan Closed fracture of left tibia and fibula ED Provider Note CHIEF COMPLAINT: Ankle pain HISTORY OF PRESENT ILLNESS: This 67-year-old patient presents to the emergency department via ambulance after sustaining an injury to the low ankle and foot. The patient states she was doing "absolutely nothing" and has no idea how she fractured the ankle. She does report a history of osteoporosis and notes that the ankle just broke. She denies any falls or trauma. She denies changing positions or getting up from a sitting position or sitting from a standing position. She states she was doing yard work throughout the day and then went inside to make soup. She states she was using bourbon and gavino's to try to treat the pain unsuccessfully. She notes she thought she could go to bed and it would be better in the morning, but decided to come to the emergency department instead the patient complains of no pain on initial evaluation. The patient denies pain of the foot. The patient rates the pain as nothing and 0/10 on initial evaluation. The patient is not able to bear weight on the foot. No knee pain, the patient is able to move their toes. No numbness or weakness of the foot, no laceration. The patient has had a previous fracture to this ankle, she notes it was 30 or 40 years ago. The patient has taken no medication for the pain. The patient denies any other injury. REVIEW OF SYSTEMS: A 6 system review of systems was completed with positives and pertinent negatives listed in the HPI. ALLERGIES: None PHYSICAL EXAM: Vital Signs: Reviewed Nurse's notes, vital signs stable. GENERAL: This is a 67-year-old, no acute distress, but appears in pain, well-developed, well-nourished. MENTAL STATUS: Alert, oriented to person place and time, and cooperative. MUSCULOSKELETAL: The left ankle deformed, the foot is externally rotated. There is tenting of the skin on the medial aspect of the distal tibia. There is no specific fifth metatarsal tenderness. There is no tenderness over the rest of the foot. There is no calf or tibia/fibular tenderness. There is no visual deformity. The foot and toes are warm and well- perfused. Dorsalis pedis pulse 2+. Sensation to pain and light touch is intact. Capillary refill less than 2 seconds. EMERGENCY DEPARTMENT COURSE: I examined the patient. IV access obtained, labs drawn. X-rays of the left tib/fib and ankle were reviewed by myself and read by radiology and reveal distal tibia and fibula fracture as noted. I discussed the case with Dr. Figueroa. I discussed the case with Dr. Bello orthopedic markel saleh unified communications engineer. He recommends we reduce the fracture and place the patient into a posterior leg with stirrup splint. I discussed this recommendation with Dr. Figueroa. The patient was medicated with IV morphine. Dr. Figueroa did reduce the fracture. An orthoglass splint as above was applied to the ankle under my direction and the position was satisfactory. Neurovascular status was rechecked by me and intact. Postreduction films completed and reviewed by myself, showing satisfactory positioning of the fracture with overlying splint, per my interpretation. The patient does not feel that she will be able to manage this injury at home over the weekend. She does feel that she will need inpatient care. I discussed this with Dr. Bello and he agreed to admit the patient. Please see orthopedics dictation regarding ongoing management care of this patient. DIFFERENTIAL DIAGNOSIS: Fracture, subluxation, dislocation, contusion, ligamentous injury, neurovascular, compartment syndrome, as well as other pathologies. I attest that I have personally reviewed the patient's current medication list. Blood Pressure Screening: Patient was found to have a slightly elevated blood pressure due to circumstances. I do not believe that the patient requires hypertension monitoring. The chart was completed utilizing [employer] Speech voice recognition software. Grammatical errors, random word insertions, pronoun errors, and incomplete sentences are an occasional consequence of this system due to software limitations, ambient noise, and hardware issues. Any formal questions or concerns about the content, text, or information contained within the body of this dictation should be directly addressed to the provider for clarification. 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 Beliefs That Will Affect Care: None marital status: Single Current Living Situation: Significant Other Feels Safe at Home: Yes Assistive Devices: None Allergies Allergies Allergy/AdvReac Type Severity Reaction Status Date / Time No Known Allergies Allergy Unverified 05/08/20 17:29 Home Meds Home Medications Medication Instructions Recorded Confirmed losartan 50 mg tablet 75 mg PO DAILY 04/01/20 01/04/23 albuterol sulfate 90 mcg/actuation 90 mcg inhalation Q4H PRN wheezing 01/04/23 01/04/23 aerosol inhaler aspirin 81 mg chewable tablet 81 mg PO DAILY 01/04/23 01/04/23 fluticasone 100 mcg-salmeterol 50 1 inh inhalation BID 01/04/23 01/04/23 mcg/dose blistr powdr for inhalation (Wixela Inhub) fluticasone propionate 50 2 spray intranasal DAILY PRN 01/04/23 01/04/23 mcg/actuation nasal Allergic Symptoms spray,suspension Results & Data (ED) Vital Signs Vital Signs - 24 hr 01/03/23 21:40 01/03/23 21:40 01/03/23 22:53 Temperature 36.7 C 36.7 C Temperature Source Oral Oral Pulse Rate 77 70 Pulse Rate [Apical] Pulse Rate from SpO2 Sensor Respiratory Rate 18 18 18 Respiratory Effort / Characteristics Non-Labored Spontaneous Respiratory Depth Normal Respiratory Pattern Blood Pressure 163/86 H Blood Pressure [Right Arm] 163/86 H Blood Pressure Mean 111 Blood Pressure Mean [Right Arm] 111 Blood Pressure Position Lying Blood Pressure Position [Right Arm] Lying Pulse Oximetry 96 96 94 Oxygen Delivery Method Room Air Room Air Room Air Oxygen Flow Rate Sepsis Recent Fever Within 48 Hours No Sepsis New/Unexplained Change in Mental Status No Sepsis Action Taken by Nursing No Action Required 01/03/23 22:53 01/04/23 00:00 01/04/23 01:00 Temperature Temperature Source Pulse Rate 85 Pulse Rate [Apical] 81 Pulse Rate from SpO2 Sensor 85 Respiratory Rate 18 18 16 Respiratory Effort / Characteristics Non-Labored Spontaneous Respiratory Depth Normal Respiratory Pattern Regular Blood Pressure 191/112 H Blood Pressure [Right Arm] 135/72 141/81 H Blood Pressure Mean 138 Blood Pressure Mean [Right Arm] 93 101 Blood Pressure Position Blood Pressure Position [Right Arm] Pulse Oximetry 94 98 98 Oxygen Delivery Method Room Air Nasal Cannula Nasal Cannula Oxygen Flow Rate 2 2 Sepsis Recent Fever Within 48 Hours Sepsis New/Unexplained Change in Mental Status Sepsis Action Taken by Nursing Laboratory Data 01/03/23 21:58 01/03/23 21:58 Lab Results 01/03/23 01/03/23 01/04/23 Range/Units 21:58 21:58 00:14 WBC 8.14 (4.8-10.8) K/ul RBC 3.69 L (4.20-5.40) M/uL Hgb 12.2 (12.0-16.0) g/dl Hct 35.4 L (37.0-47.0) % MCV 95.9 (80.0-100.0) fL MCH 33.1 (25.0-34.0) pg MCHC 34.5 (32.0-36.0) g/dL RDW Std Deviation 48.9 H (36.4-46.3) fL RDW Coeff of Bladimir 13.9 (11.5-14.5) % Plt Count 207 (130-400) K/uL MPV 10.1 (9.4-12.4) fL Immature Gran % (Auto) 0.6 % Neut % (Auto) 65.9 % Lymph % (Auto) 24.1 % Porter % (Auto) 5.5 % Eos % (Auto) 2.8 % Baso % (Auto) 1.1 % Neut # (Auto) 5.36 (1.40-6.50) K/uL Lymph # (Auto) 1.96 (1.2-3.4) K/uL Porter # (Auto) 0.45 (0.11-0.59) K/uL Eos # (Auto) 0.23 (0-0.50) K/uL Baso # (Auto) 0.09 (0-0.2) K/uL Immature Gran # (Auto) 0.05 (0.01-0.20) K/uL Sodium 136 (136-145) mmol/L Potassium 4.3 (3.5-5.1) mmol/L Chloride 102 (98-107) mmol/L Carbon Dioxide 24 (21-32) mmol/L Anion Gap 10 (3-11) BUN 19 (6-23) mg/dl Creatinine 0.96 (0.6-1.2) mg/dl Est Cr Clr Drug Dosing 61.0 ml/min Est GFR ( Amer) 69.9 ml/min Est GFR (Non-Af Amer) 60.3 ml/min BUN/Creatinine Ratio 19.8 (10-20) Glucose 105 H (70-99(Fasting)) mg/dl Calcium 9.0 (8.6-10.3) mg/dl Total Bilirubin 0.4 (0.2-1.0) mg/dl AST 44 H (13-39) U/L ALT 32 (7-52) U/L Alkaline Phosphatase 49 (34-104) U/L Total Protein 7.6 (6.0-8.3) gm/dl Albumin 4.4 (3.4-5.0) gm/dl Globulin 3.2 (2.5-4.0) gm/dl Albumin/Globulin Ratio 1.4 (0.9-2) SARS-CoV-2, RNA, NAAT NEGATIVE (NEGATIVE) Administered Medications Discontinued Medications Sodium Chloride (Nss 1000ml) 1,000 mls @ 999 mls/hr IV .Q1H1M ONE Stop: 01/03/23 22:47 Last Infusion: 01/03/23 23:47 Dose: 0 mls/hr Documented By: Admin: 01/03/23 22:02 Dose: 999 mls/hr Documented By: ZACK Morphine Sulfate (Morphine Sulfate 4 Mg/Ml 1 Ml Carp\\Vial) 4 mg IV NOW STA Stop: 01/03/23 23:28 Last Admin: 01/03/23 23:39 Dose: 4 mg Documented By: JUVENCIO Ondansetron HCl (Ondansetron Inj 2 Mg/Ml 2 Ml Vial) 4 mg IV NOW STA Stop: 01/03/23 23:28 Last Admin: 01/03/23 23:39 Dose: 4 mg Documented By: JUVENCIO Imaging Data Radiologist's Impression: Ankle X-Ray 01/03/23 21:46 LEFT TIBIA AND FIBULA 2 VIEWS; LEFT ANKLE 2 VIEWS CLINICAL HISTORY: Left leg injury and deformity. FINDINGS: Crosstable AP and lateral views of the left tibia and fibula with crosstable AP and lateral views of the left ankle are obtained. No prior studies are available for comparison at the time of dictation. The skeletal structures are osteopenic. There is a displaced and comminuted spiral fracture of the distal tibial diaphysis. There is lateral displacement of the distal fragment by up to 1.5 cm, as well as overriding of the fragments. There is also a displaced and comminuted spiral fracture of the distal fibular shaft. The proximal tibia and fibula appear intact. No fracture is seen at the ankle joint. There has been buttress plate fixation of the distal fibular shaft. The orthopedic hardware appears intact. The ankle mortise is intact. The knee joint is grossly maintained. There is a dorsal calcaneal enthesophyte. IMPRESSION: Displaced and comminuted spiral fractures of the distal tibial and fibular shafts as above with overlying soft tissue edema. Electronically signed by: Ahmet Rojas M.D. 01/03/2023 10:41 PM Tibia/Fibula X-Ray 01/03/23 21:46 LEFT TIBIA AND FIBULA 2 VIEWS; LEFT ANKLE 2 VIEWS CLINICAL HISTORY: Left leg injury and deformity. FINDINGS: Crosstable AP and lateral views of the left tibia and fibula with crosstable AP and lateral views of the left ankle are obtained. No prior studies are available for comparison at the time of dictation. The skeletal structures are osteopenic. There is a displaced and comminuted spiral fracture of the distal tibial diaphysis. There is lateral displacement of the distal fragment by up to 1.5 cm, as well as overriding of the fragments. There is also a displaced and comminuted spiral fracture of the distal fibular shaft. The proximal tibia and fibula appear intact. No fracture is seen at the ankle joint. There has been buttress plate fixation of the distal fibular shaft. The orthopedic hardware appears intact. The ankle mortise is intact. The knee joint is grossly maintained. There is a dorsal calcaneal enthesophyte. IMPRESSION: Displaced and comminuted spiral fractures of the distal tibial and fibular shafts as above with overlying soft tissue edema. Electronically signed by: Ahmet Rojas M.D. 01/03/2023 10:41 PM Discharge Plan Visit Data Chief Complaint: Ankle Pain Stated Complaint: LEFT LOWER LEG PAIN ED Provider: Portillo Figueroa ED Midlevel Provider: Hailee Valles Discharge Problem: Closed fracture of left tibia and fibula Patient Disposition: Admitted As Inpatient Forms Stand Alone Forms: [facility] Prescriptions Prescriptions: No Action losartan 50 mg tablet 75 mg PO DAILY fluticasone propion-salmeterol [Wixela Inhub] 100-50 mcg/dose blister with device 1 inh INHALATION BID albuterol sulfate 90 mcg/actuation HFA aerosol inhaler 90 mcg INHALATION Q4H PRN (Reason: wheezing) aspirin 81 mg tablet,chewable 81 mg PO DAILY fluticasone propionate 50 mcg/actuation spray,suspension 2 spray INTRANASAL DAILY PRN (Reason: Allergic Symptoms) Referrals Referrals: Ling Nolasco DO [Primary Care Provider] -
--- NOTE | 2023-01-04 00:11 | Emergency Department Note ---
ED Visit Note Orthopedic fracture reduction and splinting: I was working with physician hotel assistant general manager Hailee. With gentle inline traction the fracture was realigned visually under physical exam. The patient's leg was splinted with a Ortho-Glass posterior and sugar-tong splint. The patient is neurovascularly intact after splinting. The patient tolerated this well. She was given some IV morphine prior to reduction. .
--- NOTE | 2023-01-04 01:02 | History and Physical Report ---
DATE OF SERVICE: . I was consulted to see the patient for left leg injury. She had consumed alcohol. She denies having an injury. She says it just happened, but does not recall having any fall or injury. She had been doing some gardening today. She complains of pain in her left ankle. She has a prior history of an ORIF of a left ankle fracture, which got infected, but was treated with antibiotics. PAST MEDICAL HISTORY: Significant for asthma, for which she takes an inhaler, but does not know the name. She takes an antihypertensive medication, losartan for high blood pressure, but does not recal l the dosage. She also has osteoporosis. She denies heart attack, stroke, bleeding, blood clots, MRSA, diabetes, cancer. PAST SURGICAL HISTORY: Left ankle surgery and hiatal hernia, tonsils. Past medical history is as noted above, as is the review of systems. ALLERGIES: Seasonal. No medical allergies. SOCIAL HISTORY: She does not smoke, but does drink. Afebrile, vital signs stable. Blood pressure is a little bit high, possibly secondary to pain. Whit e count 8, hemoglobin 12, hematocrit 35, platelets are 207. Her PRP is noted. COVID pending. X-ray s of the left tib-fib show a prior ORIF of the distal fibula. There is a fracture above that, which is comminuted. There is a distal tibia fracture about 4-6 cm from the ankle joint. There is substan tial malalignment. Post-reduction films show improved alignment. There is no dislocation. DP pulse is 1+. Sensation intact. Foot is not swollen. She can flex and extend her toes against re sistance. Splint is intact. I was informed that the skin was closed and this was not an open injury . There is no pain with passive movement of her toes. She can actively wiggle all of her toes. Cap illary refill less than 2 seconds. IMPRESSION: Left distal tib-fib fracture. PLAN: We will question her again in the morning. If she recalls anything further about what happene d, but this is a significant traumatic injury. Medicine consult. She will be admitted to the hospit al, elevate, ice, pain medicine n.p.o. after midnight. Recommend surgery and we will try to proceed tomorrow, if possible. Plating of the tibia. I do think fibula will likely need anything. We will do an informed consent tomorrow. N.p.o. after midnight. Elevate, ice, nonweightbearing. Job ID: [id number]
[2023-01-04] MEDS ORDERED: ONDANSETRON INJ 2 MG/ML 2 ML VIAL IV PRN ×3 (02:08→16:19)
[2023-01-04] MEDS ORDERED: ACETAMINOPHEN 325 MG TAB PO PRN (02:08)
[2023-01-04] MEDS ORDERED: ERGOCALCIFEROL 50,000 UNITS 1250 MCG CAP PO ONE (02:08)
[2023-01-04] MEDS: oxyCODONE/ACETAMINOPHEN 5mg/325mg TAB PO PRN ×3 (02:25→11:23)
[2023-01-04] MEDS ORDERED: hydrALAZINE HCL 20 MG/ML VIAL IV PRN (05:53)
[2023-01-04] MEDS ORDERED: ALBUTEROL HFA 8 GM INHALER INH PRN (05:53)
[2023-01-04] MEDS ORDERED: ceFAZolin 2000MG 2,000 MG/15 ML SYR IV SCH (06:00)
[2023-01-04] MEDS ORDERED: THIAMINE HCL 100 MG in SYRINGE 9 ML IV STA (06:05)
--- NOTE | 2023-01-04 06:53 | XRay Report ---
LEFT FOOT 3 VIEWS CLINICAL HISTORY: Left foot pain. FINDINGS: 3 views of the left foot are obtained. No prior studies are available for comparison at the time of dictation. The examination is performed through cast, obscuring fine bony detail. The skelet al structures are osteopenic. There is no radiographic evidence of acute fracture in the left foot. A distal tibial fracture is partially visualized on the oblique view. A buttress plate is partially im aged along the distal fibular shaft. Mild arthritic change is noted throughout the foot. Soft tissue edema is seen around the ankle. There is a tiny dorsal heel spur. IMPRESSION: 1. No acute fracture is seen in the left foot. 2. A distal tibial fracture is partially visualized. Electronically signed by: Ahmet Rojas M.D. 01/04/2023 6:51 AM
--- NOTE | 2023-01-04 06:59 | XRay Report ---
SINGLE VIEW CHEST CLINICAL HISTORY: Preoperative examination. Ankle fractures. FINDINGS: An AP, portable, upright chest radiograph is compared to study dated 03/31/2020. The cardiom ediastinal silhouette is unremarkable noting atherosclerotic calcification of the thoracic aorta. Chr onic interstitial thickening is similar to previous. There is bibasilar scarring/atelectasis. The nba gs and pleural spaces are otherwise clear. No pneumothorax is seen. The skeletal structures are osteo penic. The bony thorax is grossly intact. Arthritic change is noted in the shoulders. IMPRESSION: No active disease in the chest. ACT 112: Negative or not required by law. Electronically signed by: Ahmet Rojas M.D. 01/04/2023 6:57 AM
--- NOTE | 2023-01-04 07:09 | XRay Report ---
LEFT TIBIA AND FIBULA 2 VIEWS CLINICAL HISTORY: Postreduction examination. FINDINGS: AP and lateral views of the left tibia and fibula are compared to studies dated 01/03/2023. The examination is performed through a cast, obscuring fine bony detail. There is significantly impro nick alignment of a spiral fracture through the distal tibial shaft. There is lateral displacement of the distal fragment by up to 6 mm. There is also improved alignment of a comminuted spiral fracture t hrough the mid to distal fibular shaft. The fibular fracture extends to a buttress plate along the la teral cortex. The orthopedic hardware appears intact. The proximal tibia and fibula are intact as vis ualized. The knee and ankle joints are grossly maintained. Soft tissue edema is noted in the calf. Th ere is a small dorsal heel spur. IMPRESSION: Improved alignment of the distal tibial and fibular shaft fractures as detailed above. Electronically signed by: Ahmet Rojas M.D. 01/04/2023 7:07 AM
--- NOTE | 2023-01-04 07:42 | Electrocardiogram Report ---
Test Reason : Blood Pressure : / mmHG Vent. Rate : 086 BPM Atrial Rate : 086 BPM P-R Int : 150 ms QRS Dur : 086 ms QT Int : 404 ms P-R-T Axes : 038 049 037 degrees QTc Int : 483 ms Normal sinus rhythm Nonspecific ST abnormality Abnormal ECG When compared with ECG of 04-JAN-2023 02:53, (unconfirmed) No significant change was found Confirmed by Jonathon Reynoso ([id number]) on 01/04/2023 7:42:16 AM Referred By: REFERRED SELF Confirmed By:Alfredo Reynoso
--- NOTE | 2023-01-04 08:20 | Communication Note ---
Date of Service: January 04, 2023 Patient should be at acceptable risk to proceed with Surgery. Thank you
[2023-01-04] MEDS: ASPIRIN 81 MG CHEW PO SCH (08:27)
[2023-01-04] MEDS: DOCUSATE SODIUM 100 MG CAP PO SCH ×3 (08:27→19:56)
[2023-01-04] MEDS ORDERED: fentaNYL citrate PF 100 MCG/2 ML VIAL IV PRN (08:32)
[2023-01-04] MEDS ORDERED: ATROPINE SULFATE 0.1 MG/ML 10ML SYR IV PRN (08:32)
[2023-01-04] MEDS ORDERED: MoRPHine SULFATE 10 MG/ML CARP/VIAL IV PRN (08:32)
[2023-01-04] MEDS ORDERED: ALBUTEROL 0.083% NEBU SOLN 3 ML VIAL INH PRN (08:32)
[2023-01-04] MEDS ORDERED: ePHEDrine sulfate 50 MG/ML AMP IV PRN (08:32)
[2023-01-04] MEDS ORDERED: MEPERIDINE HCL 25 MG/ML CARP/VIAL IV PRN (08:32)
--- NOTE | 2023-01-04 08:32 | Anesthesiology Consultation ---
Date of Service January 04, 2023 Assessment & Plan Chart Review Chart Review: Acceptable Risk for Surgery Consults Requested none ASA ASA2 Proposed Anesthesia Anesthesia Type: General Regional Regional Laterality: Left Site: Popliteal and Saphenous Risk / Benefits Reviewed With: PT / POA / Parent / Guardian, Accepts Plan and Informed Consent Obtained History Surgery Operation Date: 01/04/23 12:00 Proposed Procedures p Open Reduction Internal Fixation Left Tibia(Left) - Brandin Bello MD Height/Weight Height: 5 ft 6 in Weight: 82 kg Allergies Allergy/AdvReac Type Severity Reaction Status Date / Time No Known Allergies Allergy Unverified 05/08/20 17:29 Medications Home Medications Medication Instructions Recorded Confirmed Last Taken losartan 50 mg tablet 75 mg PO DAILY 04/01/20 01/04/23 01/03/23 08:00 albuterol sulfate 90 mcg/actuation 90 mcg inhalation Q4H PRN wheezing 01/04/23 01/04/23 Unknown aerosol inhaler aspirin 81 mg chewable tablet 81 mg PO DAILY 01/04/23 01/04/23 01/03/23 08:00 fluticasone 100 mcg-salmeterol 50 1 inh inhalation BID 01/04/23 01/04/23 0401/12 08:00 mcg/dose blistr powdr for inhalation (Wixela Inhub) fluticasone propionate 50 2 spray intranasal DAILY PRN 01/04/23 01/04/23 Unknown mcg/actuation nasal Allergic Symptoms spray,suspension Active Medications Generic Name Dose Route Start Last Admin Trade Name Freq PRN Reason Stop Dose Admin Aspirin 81 mg 01/04/23 09:00 01/04/23 08:27 Aspirin 81 Mg Chew PO 02/03/23 08:59 81 mg DAILY NUNU Administration Docusate Sodium 100 mg 01/04/23 09:00 01/04/23 08:27 Docusate Sodium 100 Mg Cap PO 02/03/23 08:59 100 mg BID NUNU Administration Oxycodone/Acetaminophen 1 - 2 tab 01/04/23 02:08 01/04/23 06:41 Oxycodone/Acetaminophen 5mg/325mg Tab PO 01/18/23 02:07 2 tab Q4H PRN Administration Pain NPO Date Last Intake of Fluids: 01/03/23 Time Last Intake of Fluids: 21:00 Date Last Intake of Solids: 01/03/23 Time Last Intake of Solids: 21:00 Past Medical History Medical History (Updated 01/04/23 @ 08:30 by Kelly Osuna DO) Asthma Hernia, hiatal Hypertension Osteoporosis Exercise / Class Metabolic Activity II 4-5 Yardwork/Stairs/Walk up hill Past Surgical History Surgical History (Updated 01/04/23 @ 09:25 by Kelly Osuna DO) History of S/P hernia repair Status post ORIF of fracture of ankle left fibula Past Anesthesia History No Hx of Anesthesia Complications and No Family Hx of Anesthesia Complications History of PONV No Hx of PONV and No Hx of Motion Sickness Social History Smoking Status: Never smoker Do You Dip or Chew Tobacco: No Hx Alcohol Use: Yes Alcohol type: beer alcohol intake frequency: a few times a week Hx Substance Use: No substance use type: does not use Physical Exam Vital Signs Last Vital Signs Temp 37.2 C 01/04/23 07:45 Pulse 88 01/04/23 07:45 Resp 16 01/04/23 07:45 BP 140/78 01/04/23 07:45 Pulse Ox 92 01/04/23 07:45 O2 Del Method Room Air 01/04/23 07:45 O2 Flow Rate 2 01/04/23 01:00 ENMT Mouth: + dental restorations (significant amt of crowns BL upper/lower. all in good repair); no TMJ abnormality Thyromental Distance: > or= 3.5 Finger Breadths Mallampati Class: III Neck normal visual inspection and trachea midline; neck extension not limited Respiratory normal respiratory effort Auscultation: lungs clear to auscultation bilaterally Cardiovascular Rate/Rhythm: regular rate and regular rhythm Heart Sounds: no murmur Musculoskeletal Spine: normal cervical ROM Extremities: full ROM of extremities Neurologic moves all extremities Motor/Sensory: no sensory deficit Psychiatric Orientation: alert and oriented x 3 Testing Laboratory Results 01/03/23 21:58 01/03/23 21:58 Electrocardiogram Date: 01/03/23 Findings: + NSR @ (86) and + NSST changes Chest X-Ray Date: 01/04/23 Findings: + NAD
[2023-01-04] MEDS ORDERED: ROPIVACAINE 0.5% 5 MG/ML 30 ML VIAL ONE (08:35)
--- NOTE | 2023-01-04 08:45 | History & Physical Report ---
Date of Service January 04, 2023 Assessment & Plan (1) Closed fracture of left tibia and fibula: Plan: Discussed and reviewed imaging this am with patient. She has a comminuted distal tibia fracture and fibula shaft fracture with with hardware intact over the distal fibula History of osteoporosis without any current treatment besides OTC vitamin D and calcium Case was discussed with Dr. Bello, She has been NPO since 9pm, She will remain NPO, nursing and patient aware. She will be taken to the OR today for a left tibia open reduction internal fixation with Dr. Garza. I discussed with the patient risks of the procedure as well as benefits. We also discussed nonoperative intervention. We discussed risk with this as well. Risk of the procedure are included but not limited to: Infection, bleeding, wound issues, scarring issues, wound dehiscence, ne urovascular damage, nonunion, malunion, hardware failure, DVT, PE, heart attack, stroke, . Patient wishes to proceed with surgical intervention. Consent was obtained. Patient verbalized understanding of risks. Present on Admission?: Yes Admission and Anticipated Discharge Date Admission Date: January 04, 2023 History of Present Illness Primary Care Provider: Ling Nolasco DO Patient is a 67-year-old female who was admitted on our services for a left distal tibia and fibular shaft fracture. She explains that yesterday she was is sitting and relaxed in her chair and when she went to get up she may have twisted the ankle however she had no fall. She states she had increased pain and was unable to weight-bear. She was trying just to see if it would improve however she states the pain seemed to get worse and was unable to control it. She was transported to the emergency department where she was examined and had imaging. She was found to have a comminuted distal tibia and fibular shaft fracture. This was reduced and splinted and admitted on our services. She states that she has no pain in the left ankle at this time. She states if she tries to move the legs she has pain and rates a 7/10. She does report of having a previous fracture to approximately 30 years ago that was repaired by Dr. Smith. She states she has not had any previous issues with this prior to the fracture yesterday. She denies any paresthesia or swelling or open areas. She states she had no bruising upon transitioning to the ED. 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 She does report having a history of osteoporosis previous treatment with Reclast years ago however she is just taken oral vitamin D and calcium. She has a history of hypertension controlled on losartan that she takes in the evening. She has a history of asthma per patient this is controlled. She denies any frequent use of her inhaler, coughing, wheezing or shortness of breath. She denies any history of MRSA latex allergies, DVT, PE or bleeding disorders. She has been NPO since 9pm 01/03/23. Takes a 81 mg aspirin daily however this was not given to patient last night. Spoke with nursing, hospitalist aware patient is being taken to the OR today and will dictate his note. Allergies Allergy/AdvReac Type Severity Reaction Status Date / Time No Known Allergies Allergy Unverified 05/08/20 17:29 Home Medications Medication Instructions Recorded Confirmed Type losartan 50 mg tablet 75 mg PO DAILY 04/01/20 01/04/23 History albuterol sulfate 90 mcg/actuation 90 mcg inhalation Q4H PRN wheezing 01/04/23 01/04/23 History aerosol inhaler aspirin 81 mg chewable tablet 81 mg PO DAILY 01/04/23 01/04/23 History fluticasone 100 mcg-salmeterol 50 1 inh inhalation BID 01/04/23 01/04/23 History mcg/dose blistr powdr for inhalation (Wixela Inhub) fluticasone propionate 50 2 spray intranasal DAILY PRN 01/04/23 01/04/23 History mcg/actuation nasal Allergic Symptoms spray,suspension Past Med/Surg History Medical History Asthma Hernia, hiatal Hypertension Osteoporosis Surgical History (Updated 01/04/23 @ 08:30 by Kelly Osuna DO) History of Status post ORIF of fracture of ankle left fibula Social History Smoking Status: Never smoker Second Hand Exposure: No; Hx Alcohol Use: Yes Alcohol type: beer Hx Substance Use: No Preferred Language: Guamanian Communication Ability: Effective Visual Impairment: No Limitations Manager Interface Required: No Beliefs That Will Affect Care: None marital status: Single Current Living Situation: Significant Other Feels Safe at Home: Yes Assistive Devices: None Review of Systems Review of Systems: All systems reviewed & are unremarkable except as noted in HPI & below Physical Exam Physical Exam: Musculoskeletal: Left lower extremity is in short posterior splint. Toes are exposed normal in color and temperature. Negative for edema. Able to flex and extend toes. Skin shows no irritation from splint. Able to freely flex and extend knee without limitations. Capillary refills less than 2 seconds. Right ankle range of motion is within normal limits without restrictions. Constitutional: well developed, well nourished, well groomed, cooperative and comfortable Eyes: EOM intact bilaterally ENMT: external ear and nose normal, oropharynx normal Respiratory: normal respiratory effort Results & Data Results & Data Vital Signs (Past 12 Hours) Vital Signs Temp Pulse Pulse Pulse Resp BP BP 01/04/23 02:30 01/04/23 02:08 37.2 C 88 20 155/72 H 01/04/23 02:08 37.2 C 88 20 155/72 H 01/04/23 01:00 81 16 141/81 H 01/04/23 00:00 85 18 191/112 H 01/03/23 22:53 18 135/72 01/03/23 22:53 70 18 01/03/23 21:40 36.7 C 18 163/86 H 01/03/23 21:40 36.7 C 77 18 163/86 H Pulse Ox O2 Del Method O2 Flow Rate 01/04/23 02:30 Room Air 01/04/23 02:08 97 Room Air 01/04/23 02:08 97 Room Air 01/04/23 01:00 98 Nasal Cannula 2 01/04/23 00:00 98 Nasal Cannula 2 01/03/23 22:53 94 Room Air 01/03/23 22:53 94 Room Air 01/03/23 21:40 96 Room Air 01/03/23 21:40 96 Room Air Laboratory Results 01/04/23 01/04/23 01/03/23 Range/Units 07:13 00:14 21:58 WBC (4.8-10.8) K/ul RBC (4.20-5.40) M/uL Hgb (12.0-16.0) g/dl Hct (37.0-47.0) % MCV (80.0-100.0) fL MCH (25.0-34.0) pg MCHC (32.0-36.0) g/dL RDW Std Deviation (36.4-46.3) fL RDW Coeff of Bladimir (11.5-14.5) % Plt Count (130-400) K/uL MPV (9.4-12.4) fL Immature Gran % (Auto) % Neut % (Auto) % Lymph % (Auto) % [place] % (Auto) % Eos % (Auto) % Baso % (Auto) % Neut # (Auto) (1.40-6.50) K/uL Lymph # (Auto) (1.2-3.4) K/uL [place] # (Auto) (0.11-0.59) K/uL Eos # (Auto) (0-0.50) K/uL Baso # (Auto) (0-0.2) K/uL Immature Gran # (Auto) (0.01-0.20) K/uL Sodium (136-145) mmol/L Potassium (3.5-5.1) mmol/L Chloride (98-107) mmol/L Carbon Dioxide (21-32) mmol/L Anion Gap (3-11) BUN (6-23) mg/dl Creatinine (0.6-1.2) mg/dl Est Cr Clr Drug Dosing ml/min Est GFR ( Amer) ml/min Est GFR (Non-Af Amer) ml/min BUN/Creatinine Ratio (10-20) Glucose (70-99(Fasting)) mg/dl Estimat Average Glucose Pending Hemoglobin A1c Pending Calcium (8.6-10.3) mg/dl Total Bilirubin (0.2-1.0) mg/dl AST (13-39) U/L ALT (7-52) U/L Alkaline Phosphatase (34-104) U/L Total Protein (6.0-8.3) gm/dl Albumin (3.4-5.0) gm/dl Globulin (2.5-4.0) gm/dl Albumin/Globulin Ratio (0.9-2) 25-OH Vitamin D Total 70.7 (30-100) ng/ml SARS-CoV-2, RNA, NAAT NEGATIVE (NEGATIVE) 04/14/23 04/14/23 Range/Units 21:58 21:58 WBC 8.14 (4.8-10.8) K/ul RBC 3.69 L (4.20-5.40) M/uL Hgb 12.2 (12.0-16.0) g/dl Hct 35.4 L (37.0-47.0) % MCV 95.9 (80.0-100.0) fL MCH 33.1 (25.0-34.0) pg MCHC 34.5 (32.0-36.0) g/dL RDW Std Deviation 48.9 H (36.4-46.3) fL RDW Coeff of Bladimir 13.9 (11.5-14.5) % Plt Count 207 (130-400) K/uL MPV 10.1 (9.4-12.4) fL Immature Gran % (Auto) 0.6 % Neut % (Auto) 65.9 % Lymph % (Auto) 24.1 % [place] % (Auto) 5.5 % Eos % (Auto) 2.8 % Baso % (Auto) 1.1 % Neut # (Auto) 5.36 (1.40-6.50) K/uL Lymph # (Auto) 1.96 (1.2-3.4) K/uL [place] # (Auto) 0.45 (0.11-0.59) K/uL Eos # (Auto) 0.23 (0-0.50) K/uL Baso # (Auto) 0.09 (0-0.2) K/uL Immature Gran # (Auto) 0.05 (0.01-0.20) K/uL Sodium 136 (136-145) mmol/L Potassium 4.3 (3.5-5.1) mmol/L Chloride 102 (98-107) mmol/L Carbon Dioxide 24 (21-32) mmol/L Anion Gap 10 (3-11) BUN 19 (6-23) mg/dl Creatinine 0.96 (0.6-1.2) mg/dl Est Cr Clr Drug Dosing 61.0 ml/min Est GFR ( Amer) 69.9 ml/min Est GFR (Non-Af Amer) 60.3 ml/min BUN/Creatinine Ratio 19.8 (10-20) Glucose 105 H (70-99(Fasting)) mg/dl Estimat Average Glucose Hemoglobin A1c Calcium 9.0 (8.6-10.3) mg/dl Total Bilirubin 0.4 (0.2-1.0) mg/dl AST 44 H (13-39) U/L ALT 32 (7-52) U/L Alkaline Phosphatase 49 (34-104) U/L Total Protein 7.6 (6.0-8.3) gm/dl Albumin 4.4 (3.4-5.0) gm/dl Globulin 3.2 (2.5-4.0) gm/dl Albumin/Globulin Ratio 1.4 (0.9-2) 25-OH Vitamin D Total (30-100) ng/ml SARS-CoV-2, RNA, NAAT (NEGATIVE) Diagnostic Findings Foot X-Ray 01/03/23 00:00 LEFT FOOT 3 VIEWS CLINICAL HISTORY: Left foot pain. FINDINGS: 3 views of the left foot are obtained. No prior studies are available for comparison at the time of dictation. The examination is performed through cast, obscuring fine bony detail. The skeletal structures are osteopenic. There is no radiographic evidence of acute fracture in the left foot. A distal tibial fracture is partially visualized on the oblique view. A buttress plate is partially imaged along the distal fibular shaft. Mild arthritic change is noted throughout the foot. Soft tissue edema is seen around the ankle. There is a tiny dorsal heel spur. IMPRESSION: 1. No acute fracture is seen in the left foot. 2. A distal tibial fracture is partially visualized. Electronically signed by: Ahmet Rojas M.D. 01/04/2023 6:51 AM Ankle X-Ray 01/03/23 21:46 LEFT TIBIA AND FIBULA 2 VIEWS; LEFT ANKLE 2 VIEWS CLINICAL HISTORY: Left leg injury and deformity. FINDINGS: Crosstable AP and lateral views of the left tibia and fibula with crosstable AP and lateral views of the left ankle are obtained. No prior studies are available for comparison at the time of dictation. The skeletal structures are osteopenic. There is a displaced and comminuted spiral fracture of the distal tibial diaphysis. There is lateral displacement of the distal fragment by up to 1.5 cm, as well as overriding of the fragments. There is also a displaced and comminuted spiral fracture of the distal fibular shaft. The proximal tibia and fibula appear intact. No fracture is seen at the ankle joint. There has been buttress plate fixation of the distal fibular shaft. The orthopedic hardware appears intact. The ankle mortise is intact. The knee joint is grossly maintained. There is a dorsal calcaneal enthesophyte. IMPRESSION: Displaced and comminuted spiral fractures of the distal tibial and fibular shafts as above with overlying soft tissue edema. Electronically signed by: Ahmet Rojas M.D. 01/03/2023 10:41 PM Tibia/Fibula X-Ray 01/03/23 21:46 LEFT TIBIA AND FIBULA 2 VIEWS; LEFT ANKLE 2 VIEWS CLINICAL HISTORY: Left leg injury and deformity. FINDINGS: Crosstable AP and lateral views of the left tibia and fibula with crosstable AP and lateral views of the left ankle are obtained. No prior studies are available for comparison at the time of dictation. The skeletal structures are osteopenic. There is a displaced and comminuted spiral fracture of the distal tibial diaphysis. There is lateral displacement of the distal fragment by up to 1.5 cm, as well as overriding of the fragments. There is also a displaced and comminuted spiral fracture of the distal fibular shaft. The proximal tibia and fibula appear intact. No fracture is seen at the ankle joint. There has been buttress plate fixation of the distal fibular shaft. The orthopedic hardware appears intact. The ankle mortise is intact. The knee joint is grossly maintained. There is a dorsal calcaneal enthesophyte. IMPRESSION: Displaced and comminuted spiral fractures of the distal tibial and fibular shafts as above with overlying soft tissue edema. Electronically signed by: Ahmet Rojas M.D. 01/03/2023 10:41 PM Tibia/Fibula X-Ray 01/04/23 00:09 LEFT TIBIA AND FIBULA 2 VIEWS CLINICAL HISTORY: Postreduction examination. FINDINGS: AP and lateral views of the left tibia and fibula are compared to studies dated 01/03/2023. The examination is performed through a cast, obscuring fine bony detail. There is significantly improved alignment of a spiral fracture through the distal tibial shaft. There is lateral displacement of the distal fragment by up to 6 mm. There is also improved alignment of a comminuted spiral fracture through the mid to distal fibular shaft. The fibular fracture extends to a buttress plate along the lateral cortex. The orthopedic hardware appears intact. The proximal tibia and fibula are intact as visualized. The knee and ankle joints are grossly maintained. Soft tissue edema is noted in the calf. There is a small dorsal heel spur. IMPRESSION: Improved alignment of the distal tibial and fibular shaft fractures as detailed above. Electronically signed by: Ahmet Rojas M.D. 01/04/2023 7:07 AM Chest X-Ray 01/04/23 02:37 SINGLE VIEW CHEST CLINICAL HISTORY: Preoperative examination. Ankle fractures. FINDINGS: An AP, portable, upright chest radiograph is compared to study dated 03/31/2020. The cardiomediastinal silhouette is unremarkable noting ather osclerotic calcification of the thoracic aorta. Chronic interstitial thickening is similar to previous. There is bibasilar scarring/atelectasis. The lungs and pleural spaces are otherwise clear. No pneumothorax is seen. The skeletal structures are osteopenic. The bony thorax is grossly intact. Arthritic change is noted in the shoulders. IMPRESSION: No active disease in the chest. ACT 112: Negative or not required by law. Electronically signed by: Ahmet Rojas M.D. 01/04/2023 6:57 AM Code Status & VTE Plan VTE Prophylaxis Plan VTE Prophylaxis will be ordered: Yes
--- NOTE | 2023-01-04 09:29 | Consultation Report ---
CHIEF COMPLAINT: Status post fall and left tibia and fibula fractures. HISTORY OF PRESENT ILLNESS: This 67-year-old female with past medical history significant for impaired fasting glucose, hyperlipidemia, intolerant to statins, moderate persistent asthma with history of minimal coronary artery disease, history of hypertension, GERD, senile osteoporosis, factor V Leiden mutation, iron deficiency anemia, monoclonal paraproteinemia presents with fall. The patient lives with her partner. She says drank 3 shots of bourbon and she slipped and fell and she could not get up and she was brought in here and found to have a left tibia, fibular fracture. Currently, resting comfortably. While resting, she has no pain. Denies any chest pain. No shortness of breath, no cough, no fevers, no headache, no dizziness, no blurred visions, no earache, no runny nose, no sore throat, no nausea, no abdominal pain. Normal bowel and bladder movements. The patient says that she drinks 3 light beers every day, but she can go without drinking and she does not think she will go through withdrawal. ALLERGIES: No known drug allergies. PAST MEDICAL HISTORY: As mentioned above. PAST SURGICAL HISTORY: Bilateral breast enhancement, , colonoscopy, dental surgery, EGD, paraesophageal hernia repair, cataract surgeries. MEDICATIONS: The patient is on albuterol 2 puffs q. 4 hours p.r.n., aspirin 81 mg p.o. daily, Wixela inhalation b.i.d., Flonase 2 sprays intranasal p.r.n., losartan 75 mg p.o. daily. FAMILY HISTORY: Significant for daughter has asthma, paternal aunt has breast cancer, father had bladder cancer, pacemaker, mother of blood clot; mother had osteoporosis, CHF. Paternal uncle has colon cancer, maternal aunt has diabetes, maternal uncle has diabetes, maternal aunt has CO. SOCIAL HISTORY: No smoking. Alcohol, 3 light beers every day. No drug use. REVIEW OF SYSTEMS: As per HPI. Rest of review of systems is negative. PHYSICAL EXAMINATION: GENERAL: The patient is of moderate build, not in acute distress. VITAL SIGNS: Temperature 37.2, pulse 88, respiratory rate 20, blood pressure 155/72, oxygen 97% on room air. HEENT: Extraocular muscles intact. No facial droop. NECK: No JVD. No neck masses. CARDIOVASCULAR: S1 and S2 heard. Regular rate and rhythm. No murmur, no gallop. RESPIRATORY SYSTEM: Normal AP diameter. No accessory muscle use. No wheezing or crackles. ABDOMEN: Soft, bowel sounds present, nontender, no distention. CENTRAL NERVOUS SYSTEM: Alert and oriented. Speech is clear. No facial droop. Obeys simple commands. EXTREMITIES: Left lower extremity was splinted and wrapped in dressing LABORATORY DATA: WBC 8.1, hemoglobin 12.2, hematocrit 35.4, platelets 207. Sodium 136, potassium 4.3, chloride 102, bicarbonate 24, BUN 19, creatinine 0.9, serum glucose 105, calcium 9, total bilirubin 0.4, AST 44, ALT 32, alkaline phosphatase 49, vitamin D 70. SARS-CoV-2 rapid test negative. IMAGING DATA: Chest x-ray, no acute findings. Tibia fibula x-ray on the left side, displaced and comminuted spiral fracture of the distal tibia and fibular shafts. EKG: Normal sinus rhythm, rate of 87, nonspecific ST abnormalities. No significant change was found. ASSESSMENT AND PLAN: This is a 67-year-old white female who presents with mechanical fall and left tibia, fibular fracture. 1. Mechanical fall with a left tibia, fibular fracture: Currently seen by orthopedics. Plan for procedure. She walks 2-3 miles every day and can climbs steps okay. As per cardiology notes from 05/2021, she had CT angiogram of her arteries in the past and showed minor coronary artery disease. The patient's EKG is okay. Chest x-ray looks okay. Labs looks okay. The patient is at acceptable risk to proceed with the procedure. Pain control as per orthopedics. 2. History of asthma, currently not in exacerbation: Continue home inhalers. 3. Hypertension: Currently holding losartan for procedures. Restart after surgery. We will place on IV hydralazine p.r.n. 4. History of factor V Leiden mutation. 5. Deep venous thrombosis prophylaxis: As per orthopedics. DISPOSITION: Closely monitor in the medical floor. PT/OT prior to discharge. Social service to help with discharge planning. Job ID: [id number] [facility]
[2023-01-04 11:22] LABS: Estimated Average Glucose 126 mg/dl
[2023-01-04] MEDS ORDERED: ONDANSETRON INJ 2 MG/ML 2 ML VIAL ONE (11:27)
[2023-01-04] MEDS ORDERED: fentaNYL citrate PF 100 MCG/2 ML VIAL ONE (11:27)
[2023-01-04] MEDS ORDERED: LIDOCAINE 2% MPF LOCAL 5 ML VIAL ONE (11:27)
[2023-01-04] MEDS ORDERED: PROPOFOL IV EMULSION 10 MG/ML 20 ML VIAL IV ONE (11:27)
[2023-01-04] MEDS ORDERED: DEXAMETHASONE SOD INJ 4 MG/ML VIAL ONE (11:27)
[2023-01-04] MEDS ORDERED: MIDAZOLAM HCL 1 MG/ML 2ML VIAL ONE (11:27)
--- NOTE | 2023-01-04 12:58 | History & Physical Bridge Note ---
Date of Service January 04, 2023 History & Physical Bridge Note I have examined the patient, reviewed the History & Physical and in the interval since the performance of the History & Physical I have noted the following changes of clinical significance: no changes noted
[2023-01-04] MEDS ORDERED: TRANEXAMIC ACID / 0.7% NACL 1000MG/100ML BAG IV ONE (13:02)
[2023-01-04] MEDS ORDERED: TRANEXAMIC ACID 100 MG/ML 10 ML VIAL IV ONE (14:02)
[2023-01-04] MEDS ORDERED: PHENYLEPHRINE HCL 10 MG/ML VIAL ONE (14:05)
[2023-01-04] MEDS ORDERED: MoRPHine SULFATE 2 MG/ML CARP ONE (15:49)
[2023-01-04] MEDS ORDERED: traMADol HCL 50 MG TABLET PO PRN (16:19)
[2023-01-04] MEDS ORDERED: METOCLOPRAMIDE HCL INJ 5 MG/ML 2 ML VIAL IV PRN (16:19)
[2023-01-04] MEDS ORDERED: NALOXONE HCL 0.4 MG/1 ML VIAL/CARP IV PRN (16:19)
[2023-01-04] MEDS ORDERED: MAGNESIUM HYDROXIDE SUSP 30 ML UDC PO PRN (16:19)
[2023-01-04] MEDS ORDERED: bisacodyL 10 MG SUPP PR PRN (16:19)
[2023-01-04] MEDS ORDERED: LABETALOL HCL IV 5 MG/ML 20ML IV PRN (16:29)
--- NOTE | 2023-01-04 16:36 | Operative Report ---
Post Operative Report Pre & Post Diagnosis Operation Date: 01/04/23 12:00 Pre-Op Diagnosis: Left Tibial fibula fracture Post-Op Diagnosis: Left Tibial fibula fracture I identified the patient and participated in the time-out.: Yes Procedure Operation Date: 01/04/23 12:00 Actual Procedures p Open Reduction with Intramedullary Nailing of the Left Tibia(Left) - Brandin Bello MD Surgeon Brandin Bello MD [facility] physicians freezer assistant no resident or fellow available Estimated Blood Loss 100 Findings Consistent with Post-Op Diagnosis Specimens None Anesthesia Type General Regional Complications none Disposition Accompanied Patient To Recovery: No Disposition: Recovery Room Indications Patient 67. She got up out of the chair yesterday does not recall any traumatic injury. Her leg broke. She may have twisted it. She was seen and evaluated in the ER last night and admitted to the hospital for surgical stabilization. She has a prior history of a ORIF of a previous ankle fracture 30 years ago. Description of Procedure Informed consent obtained. Patient identified. She identified the operative site as the left leg. I marked with my initials. Surgical timeout performed. Preop dose of IV antibiotics given. She was taken to the operating room positioned supine on the OR table. [place] catheter inserted. Tourniquet applied to the left thigh but not inflated. She received a preop dose of IV antibiotics and TXA. Splint was removed. Swelling was mild with no break in the skin. The distal tib-fib fracture was grossly unstable. Traction was kept on it. It was prescribed with chlorhexidine and then prepped with ChloraPrep in the usual sterile fashion. DVT prophylaxis with mechanical devices on the nonoperative limb intraoperatively and postoperatively early mobility mechanical devices and chemoprophylaxis likely with Lovenox. Fluoroscopic guidance was utilized throughout the surgical procedure The fracture site was localized and a 6 to 8 cm incision was made paralleling the tibialis anterior tendon. The tibialis anterior was incised on its tendon sheath and retracted lateralward. The fracture site was opened. I did not do any significant stripping. Other than that which was already present. I did make sure that there is no soft tissue within the fracture site. I dissected posteromedially so that I had direct access to the bone. I then inserted a large bone reduction clamp across the fracture site posterior medial to anterolateral. With distraction and rotation I was able to anatomically align the fracture and hold it in position confirmed visually and fluoroscopically. I then made an incision about 10 cm in length on the medial border of the patellar tendon. I incised the retinaculum just medial to the patellar tendon and dissected bluntly down to the tibial plateau. I introduced a guidepin and adjusted x1 with fluoroscopic guidance to get to the proper center position on the anterior ridge of the tibia. Her bone was soft and this pin actually could be introduced under hand power. The opening reamer was utilized. This was followed by the intramedullary guide oscar. This was inserted down to the level of the physeal scar. Oscar length of 345 mm was selected. Reaming began at size 8 with the Endocutter and proceeded up to size 11.5 with good cortical chatter throughout the isthmus. Then inserted the oscar a 10 mm diameter by 345 mm Synthes nail. This was advanced with the hand power blows the mallet until it was within a centimeter of the articular surface of the tibial plafond. Rotation and fracture reduction maintained. I then either through the previous incision or through percutaneous stab incisions directly dissected down to the bone and held open with retractors inserted a to P medial to lateral and oblique medial to posterior lateral locking screws through the plate using the perfect [place] mountain radiolucent drill technique. Her bone was significantly soft. It was very difficult to get and feel on the drilling. Screw lengths were estimated as best as possible based upon feel and radiographic imaging. The knee was then flexed slightly back slapped to compress the fracture which was anatomically aligned. Slight bit of comminution proximal lateral. I then put 2 percutaneous interlocking screws. 1 static and 1 dynamic from medial to lateral. Length of all screws and positions checked fluoroscopically. I then removed the insertion apparatus and and applied a 5 mm end cap. The oscar was buried about 5 mm. Environmental Projects Advisor images of the proximal distal interlocks as well as the fracture site were obtained. The fibular fracture was grossly aligned and out to length. The ankle joint itself looked intact. Copious irrigation was performed. The retinacular incision proximally was closed with 0 Vicryl. The remainder the incisions were closed with 2 oh or 3-0 Vicryl followed by aleksey on the skin. Legs cleaned wet dry sponges and soft roll dressing was applied Xeroform 4 x 4's ABD soft wrap and a full-length Sy. Patient wake from anesthesia difficulty taken to recovery in stable condition no specimens complications. Counts were correct blood loss estimated to be 100 cc. At the conclusion the operation spoke to patient's significant other discussed findings and plan. Admit to the hospital. Elevate nonweightbearing Lovenox postop antibiotics bone health assessment. Check vitamin D level Components inserted with the Synthes advanced tibial nail 345 mm in length 5 mm and Proximal dynamic screw of 5 mm x 36. Proximal static screw 5 mm x 34. A to P distal 38 mm oblique medial to lateral distal 36 and medial to lateral distal 38. I attest to the content of the Intraoperative Record and any orders documented therein. Any exceptions are noted below.
[2023-01-04] MEDS ORDERED: LABETALOL HCL IV 5 MG/ML 20ML IV ONE (16:40)
--- NOTE | 2023-01-04 16:50 | Anesthesiology Progress Note ---
Date of Service January 04, 2023 Anesthesia Post Procedure Vital Signs Vital Signs: Temp Pulse Pulse Pulse Resp BP BP 01/04/23 16:35 76 18 183/93 H 01/04/23 16:25 79 14 184/110 H 01/04/23 16:15 36.4 C L 78 12 179/104 H 01/04/23 07:45 37.2 C 88 16 140/78 01/04/23 02:30 01/04/23 02:08 37.2 C 88 20 01/04/23 02:08 37.2 C 88 20 01/04/23 01:00 81 16 01/04/23 00:00 85 18 191/112 H 01/03/23 22:53 18 01/03/23 22:53 70 18 01/03/23 21:40 36.7 C 18 01/03/23 21:40 36.7 C 77 18 163/86 H BP Pulse Ox O2 Del Method O2 Flow Rate 01/04/23 16:35 93 Room Air 01/04/23 16:25 95 Room Air 01/04/23 16:15 100 Oxymask 5 01/04/23 07:45 92 Room Air 01/04/23 02:30 Room Air 01/04/23 02:08 155/72 H 97 Room Air 01/04/23 02:08 155/72 H 97 Room Air 01/04/23 01:00 141/81 H 98 Nasal Cannula 2 01/04/23 00:00 98 Nasal Cannula 2 01/03/23 22:53 135/72 94 Room Air 01/03/23 22:53 94 Room Air 01/03/23 21:40 163/86 H 96 Room Air 01/03/23 21:40 96 Room Air Pain Intensity Left Lower Leg: Pain Intensity: 0 Transfer of Care Handoff Completed per policy Notes Mental Status: alert / awake / arousable Patient Amnestic to Procedure: Yes Nausea / Vomiting: adequately controlled Pain: adequately controlled Airway Patency, RR, SpO2: stable & adequate BP & HR: stable & adequate Hydration State: stable & adequate Anesthetic Complications: no major complications apparent and Pt Satisfied with anesthetic care
[2023-01-04] MEDS: SODIUM CHLORIDE 0.9% 1000ML 1,000 ML IV SCH (17:08)
[2023-01-04] MEDS: ACETAMINOPHEN 500 MG TAB PO SCH (17:14)
--- NOTE | 2023-01-04 17:16 | Operative Report ---
Post Operative Report Pre & Post Diagnosis Operation Date: 01/04/23 12:00 Pre-Op Diagnosis: Left Tibial fibula fracture Post-Op Diagnosis: Left Tibial fibula fracture I identified the patient and participated in the time-out.: Yes Procedure Operation Date: 01/04/23 12:00 Actual Procedures p Open Reduction with Intramedullary Nailing of the Left Tibia(Left) - Brandin Bello MD Surgeon Dr. Brandin Bello [employer] Lead [employer] [facility] physicians virtual customer assistant no resident or fellow available Estimated Blood Loss 100 Findings Consistent with Post-Op Diagnosis Specimens none Anesthesia Type General Regional Complications none Disposition Accompanied Patient To Recovery: No Description of Procedure Please refer to Dr. Bello's operative note. I was present during the entire case. I assisted with positioning, prepping the leg, draping, retracting and wound closure. Pt left the OR in stable condition. I attest to the content of the Intraoperative Record and any orders documented therein. Any exceptions are noted below.
--- NOTE | 2023-01-04 17:47 | Fluoroscopy Report ---
INTRAOPERATIVE RADIOGRAPHS CLINICAL HISTORY: Open reduction and internal fixation of the left tibia. Fluoro time: 192 seconds. Ka,r: 12.04 mGy FINDINGS: 9 spot fluoroscopic views of the left tibia and fibula are correlated with radiographs perf ormed the same day 01/04/2023. An intermedullary nail has been placed transfixing a spiral fracture of the distal tibia. Near-anatomic alignment is restored. There are at least 3 cortical lag screws mckenna sfixing the distal end of the nail. 2 cortical screws transfix the proximal end of the nail. The orth opedic hardware appears intact. A buttress plate is again seen along the lateral cortex of the distal fibula. There is also a spiral fracture of the distal fibular shaft. IMPRESSION: Intraoperative images from open reduction and internal fixation of a left tibial fracture as above. Electronically signed by: Ahmet Rojas M.D. 01/04/2023 5:44 PM
[2023-01-04] MEDS: SENNA 8.6 MG TAB PO SCH (19:56)
[2023-01-04] MEDS: ceFAZolin 2000MG 2,000 MG/15 ML SYR IV SCH (22:20)
[2023-01-05] MEDS: ACETAMINOPHEN 500 MG TAB PO SCH ×3 (00:14→16:23)
[2023-01-05] MEDS: SODIUM CHLORIDE 0.9% 1000ML 1,000 ML IV SCH (04:27)
[2023-01-05] MEDS: ceFAZolin 2000MG 2,000 MG/15 ML SYR IV SCH (05:03)
[2023-01-05] MEDS: oxyCODONE HCL IR 5 MG TAB (IMMEDIATE RELEASE) PO PRN ×4 (05:12→21:15)
[2023-01-05] MEDS: ENOXAPARIN INJ 30 MG/0.3 ML SYR SQ SCH ×2 (05:12→17:52)
[2023-01-05 06:44] LABS: Hematocrit (blood only) 32.6 % (37.0-47.0); Hemoglobin 10.9 g/dl (12.0-16.0); Mean Corpuscular Hgb Conc 33.4 g/dL (32.0-36.0); Mean Corpuscular Volume 98.8 fL (80.0-100.0); Mean Platelet Volume 10.3 fL (9.4-12.4); Platelet Count 211 K/uL (130-400); RDW Coefficient of Variation 13.7 % (11.5-14.5); RDW Standard Deviation 50.2 fL (36.4-46.3); White Blood Count 6.87 K/ul (4.8-10.8)
[2023-01-05 07:02] LABS: BUN Creatinine Ratio 21.9 (10-20); Calcium 7.9 mg/dl (8.6-10.3); Creatinine Clr Calc Pharmacy 78.5 ml/min; Est GFR (African American) 97.4 ml/min; Magnesium 2.1 mg/dl (1.7-2.4); Phosphorus 2.6 mg/dl (2.5-4.9); Potassium 4.3 mmol/L (3.5-5.1)
[2023-01-05] MEDS: MULTIVITAMIN TAB PO SCH (08:29)
[2023-01-05] MEDS: LOSARTAN POTASSIUM 25 MG TAB PO SCH (08:29)
[2023-01-05] MEDS: FLUTICASONE/VILANTEROL 100/25MCG 14 PUFFS/INHALER INH SCH (08:29)
[2023-01-05] MEDS: DOCUSATE SODIUM 100 MG CAP PO SCH ×4 (08:30→19:54)
[2023-01-05] MEDS: ASPIRIN 81 MG CHEW PO SCH (08:30)
--- NOTE | 2023-01-05 08:45 | Hospitalist Progress Note ---
Date of Service January 05, 2023 Assessment & Plan (1) Closed fracture of left tibia and fibula: (2) Asthma: Plan: This is a 67-year-old white female who presents with mechanical fall and left tibia, fibular fracture. 1. Mechanical fall with a left tibia, fibular fracture: Orthopedics consulted. Pt is now s/p surg. repair - status postintramedullary (IM) nailing of a left distal tibia fracture, yesterday 01/04/2023 w/ Dr. Bello. Pain control,pt/ot, DVT ppx as per orthopedics. 2. History of asthma, currently not in exacerbation: Continue home inhalers. 3. Hypertension: holding losartan for procedure. Restart tmrw. V hydralazine p.r.n. 4. History of factor V Leiden mutation. DVT prophylaxis:lovenox, as per orthopedics. DISPOSITION: PT/OT prior to discharge Admission and Anticipated Discharge Date Admission Date: January 04, 2023 Subjective Pt seen in follow up of tib/fib fx s/p surg. repair Currently laying in bed, in no acute distress Overall feels well, except for some pain in her left knee/ LLE LLE w/ surgical dressings, Sy wraps, she is able to wiggle her toes on her left lower extremity She is awake alert oriented, pain is fairly well controlled. Denies any fevers chills chest pain shortness of breath, denies any abdominal pain nausea or vomiting. Says she was little dizzy when she was trying to get up from bed Review of Systems Review of Systems: All systems reviewed & are unremarkable except as noted in Subjective Physical Exam Physical Exam: GENERAL: WD/WN, not in acute distress. HEENT: NC/AT. Extraocular muscles intact.No facial droop. NECK: No JVD. No neck masses. CARDIOVASCULAR: S1 and S2 heard. Regular rate and rhythm. No murmur, no gallop. RESPIRATORY: Normal AP diameter. No accessory muscle use. No wheezing or crackles. ABDOMEN: Soft, bowel sounds present, nontender, no distention. NEURO: Alert and oriented. Speech is clear. No facial droop. Obeys simple commands. EXTREMITIES: Left lower extremity in surgical dressings and sy wrap, able to wiggle toes of LLE Results & Data Results & Data Vital Signs (Past 12 Hours) Vital Signs Temp Pulse Resp BP Pulse Ox O2 Del Method 01/05/23 07:30 37.0 C 74 16 149/86 H 97 Room Air 01/05/23 04:08 36.9 C 78 16 123/72 94 Room Air 01/05/23 00:00 37.0 C 87 15 160/79 H 95 Room Air Laboratory Results 01/05/23 01/05/23 01/04/23 Range/Units 05:56 05:56 07:13 WBC 6.87 (4.8-10.8) K/ul RBC 3.30 L (4.20-5.40) M/uL Hgb 10.9 L (12.0-16.0) g/dl Hct 32.6 L (37.0-47.0) % MCV 98.8 (80.0-100.0) fL MCH 33.0 (25.0-34.0) pg MCHC 33.4 (32.0-36.0) g/dL RDW Std Deviation 50.2 H (36.4-46.3) fL RDW Coeff of Bladimir 13.7 (11.5-14.5) % Plt Count 211 (130-400) K/uL MPV 10.3 (9.4-12.4) fL Sodium 138 (136-145) mmol/L Potassium 4.3 (3.5-5.1) mmol/L Chloride 106 (98-107) mmol/L Carbon Dioxide 25 (21-32) mmol/L Anion Gap 7 (3-11) BUN 16 (6-23) mg/dl Creatinine 0.73 (0.6-1.2) mg/dl Est Cr Clr Drug Dosing 78.5 ml/min Est GFR ( Amer) 97.4 ml/min Est GFR (Non-Af Amer) 84.0 ml/min BUN/Creatinine Ratio 21.9 H (10-20) Glucose 113 H (70-99(Fasting)) mg/dl Estimat Average Glucose 126 mg/dl Hemoglobin A1c 6.0 H (4.5-5.6) % Calcium 7.9 L (8.6-10.3) mg/dl Phosphorus 2.6 (2.5-4.9) mg/dl Magnesium 2.1 (1.7-2.4) mg/dl Medications Administered Current Inpatient Medications Acetaminophen (Acetaminophen 325 Mg Tab) 650 mg PO Q6H PRN PRN Reason: Fever or Headache Stop: 02/03/23 02:07 Acetaminophen (Acetaminophen 500 Mg Tab) 1,000 mg PO Q8H [facility] Stop: 02/03/23 16:59 Last Admin: 01/05/23 08:30 Dose: 1,000 mg Albuterol (Albuterol Hfa 8 Gm Inhaler) 1 puffs INH Q4H PRN PRN Reason: wheezing Stop: 02/03/23 05:52 Aspirin (Aspirin 81 Mg Chew) 81 mg PO DAILY [facility] Stop: 02/03/23 08:59 Last Admin: 01/05/23 08:30 Dose: 81 mg Bisacodyl (Bisacodyl 10 Mg Supp) 10 mg MN DAILY PRN PRN Reason: Constipation Stop: 02/03/23 16:18 Docusate Sodium (Docusate Sodium 100 Mg Cap) 100 mg PO BID [facility] Stop: 02/03/23 08:59 Last Admin: 01/05/23 08:30 Dose: 100 mg Docusate Sodium (Docusate Sodium 100 Mg Cap) 100 mg PO BID [facility] Stop: 02/03/23 20:59 Last Admin: 01/05/23 08:30 Dose: Not Given Enoxaparin Sodium (Enoxaparin Inj 30 Mg/0.3 Ml Syr) 30 mg SQ Q12H [facility] Stop: 02/04/23 05:59 Last Admin: 01/05/23 05:12 Dose: 30 mg Fluticasone/Vilanterol (Fluticasone/Vilanterol 100/25mcg 14 Puffs/Inhaler) 1 puffs INH DAILY [facility] Stop: 02/04/23 08:59 Last Admin: 01/05/23 08:29 Dose: 1 puffs Hydralazine HCl (Hydralazine Hcl 20 Mg/Ml Vial) 7.5 mg IV Q6H PRN PRN Reason: Hypertension Stop: 02/03/23 05:52 Hydromorphone HCl (Hydromorphone Inj 0.5 Mg/0.5 Ml Syr) 0.5 mg IV Q4H PRN PRN Reason: Pain or Pre PT Stop: 01/18/23 16:18 Losartan Potassium (Losartan Potassium 25 Mg Tab) 75 mg PO DAILY [facility] Stop: 02/04/23 08:59 Last Admin: 01/05/23 08:29 Dose: 75 mg Magnesium Hydroxide (Magnesium Hydroxide Susp 30 Ml Udc) 30 ml PO Q6H PRN PRN Reason: Constipation Stop: 02/03/23 16:18 Metoclopramide HCl (Metoclopramide Hcl Inj 5 Mg/Ml 2 Ml Vial) 10 mg IV Q6H PRN PRN Reason: Nausea And Vomiting Stop: 02/03/23 16:18 Multivitamins (Multivitamin Tab) 1 tab PO QAM [facility] Stop: 02/04/23 08:59 Last Admin: 01/05/23 08:29 Dose: 1 tab Naloxone HCl (Naloxone Hcl 0.4 Mg/1 Ml Vial/Carp) 0.1 mg IV Q5M PRN PRN Reason: Oversedation/Resp Depression Stop: 02/03/23 16:18 Ondansetron HCl (Ondansetron Inj 2 Mg/Ml 2 Ml Vial) 4 mg IV Q6H PRN PRN Reason: Nausea/Vomiting Stop: 02/03/23 02:07 Ondansetron HCl (Ondansetron Inj 2 Mg/Ml 2 Ml Vial) 4 mg IV Q6H PRN PRN Reason: Nausea And Vomiting Stop: 02/03/23 16:18 Oxycodone HCl (Oxycodone Hcl Ir 5 Mg Tab (Immediate Release)) 5 - 10 mg PO Q4H PRN PRN Reason: Pain or Pre PT Stop: 01/18/23 16:18 Last Admin: 01/05/23 05:12 Dose: 10 mg Sennosides (Senna 8.6 Mg Tab) 17.2 mg PO HS [facility] Stop: 02/03/23 20:59 Last Admin: 01/04/23 19:56 Dose: 17.2 mg Tramadol HCl (Tramadol Hcl 50 Mg Tablet) 50 - 100 mg PO Q4H PRN PRN Reason: Pain & Pre PT Stop: 02/03/23 16:18
--- NOTE | 2023-01-05 10:20 | Progress Notes ---
DATE OF SERVICE: 01/04/2023. Some nausea. Pain is well controlled. The block is still present, but she feels it traveling down h er leg, wearing off. Afebrile, vital signs stable. Labs noted. Hemoglobin 11, hematocrit 33, plate lets 211. PRP is noted. Her vitamin D level is 70. She takes 10,000 units daily and probably get b ack this off to 1 or 2 thousand daily. On exam, dressing clean and dry. She can bend her knee about 30 degrees and lift her leg, but she has no active movement of the ankle or toes. The top and botto m of her foot are numb. She has a 1+ DP pulse with capillary refill less than 2 seconds. Foot is wa rm. Dressing clean and dry. Findings are discussed. Status post intramedullary (IM) nailing of a right distal tibia fracture. PLAN: Nonweightbearing on the left leg. We will check a tib-fib film. The fibula does not need to be addressed directly. Lovenox for DVT prophylaxis. She will need outpatient workup of a bone densi ty including an updated bone density test if one has not been done recently and treatment due to the perceived soft nature of her bone. She has received a postop course of IV antibiotics. Job ID: [id number]
--- NOTE | 2023-01-05 10:56 | Orthopedic Progress Note ---
Date of Service January 05, 2023 Assessment & Plan (1) Closed fracture of left tibia and fibula: Plan: Patient is doing well postoperative day 1 status post intramedullary (IM) nailing of a left distal tibia fracture Continue to have paresthesia and limited mobility of toes which is most likely from nerve block which is starting to diminish. We will continue to monitor this. She is nonweightbearing on left lower extremity. May ambulate with walker on right lower extremity full weightbearing. Continue with gentle range of motion of the knee on left not forcing motion May continue to use ice and control pain per medication regimen ordered continue with Lovenox for DVT prophylaxis Anticipate transitioning home with home services dependent on response to therapy and safety She will be seen most likely next week in office as outpatient for dressing change Admission and Anticipated Discharge Date Admission Date: January 04, 2023 Subjective Patient is a 67-year-old female who is status post Status post intramedullary (IM) nailing of a left distal tibia fracture. Patient was seen bedside this AM approximately 8 AM. She is alert and oriented x3 pleasant and in good spirits. She states she has pain that is 3/10 in the left lower extremity. She states she has some pain in the left knee. She states her toes still feel numb and if she is not able to move them. She is utilizing ice and feels this helps. She states she is hoping to be able to return home for rehabilitation and have therapy in the home if needed. She states she lives in a one-story home has 2 stairs to get inside the home. He does she does have a walk-in shower and has showered seat. She also reports she has a walker that she lent to somebody but is able to get this back. She denies any chest pain, shortness of breath, or calf pain at this time. She reports she is able to eat denies any nausea or vomiting or belly pain. Review of Systems Review of Systems: Please refer to HPI Physical Exam Physical Exam: General: Patient is alert and oriented x3 no acute distress pleasant conversive and in good spirits Integumentary/musculoskeletal: Left lower extremity is elevated on pillows. Postop dressing is intact no soiling present. Toes are exposed normal in color and temperature. Negative for edema. No sensation over toes and she is not able to flex and extend toes. She is able to flex knee slightly and extend knee. She does have sensation over the proximal extremity. Capillary refills less than 2 seconds. Results & Data Vital Signs (Past 12 Hours) Vital Signs Temp Pulse Resp BP Pulse Ox O2 Del Method 01/05/23 07:30 37.0 C 74 16 149/86 H 97 Room Air 01/05/23 04:08 36.9 C 78 16 123/72 94 Room Air 01/05/23 00:00 37.0 C 87 15 160/79 H 95 Room Air Laboratory Results 01/05/23 01/05/23 01/04/23 Range/Units 05:56 05:56 07:13 WBC 6.87 (4.8-10.8) K/ul RBC 3.30 L (4.20-5.40) M/uL Hgb 10.9 L (12.0-16.0) g/dl Hct 32.6 L (37.0-47.0) % MCV 98.8 (80.0-100.0) fL MCH 33.0 (25.0-34.0) pg MCHC 33.4 (32.0-36.0) g/dL RDW Std Deviation 50.2 H (36.4-46.3) fL RDW Coeff of Bladimir 13.7 (11.5-14.5) % Plt Count 211 (130-400) K/uL MPV 10.3 (9.4-12.4) fL Sodium 138 (136-145) mmol/L Potassium 4.3 (3.5-5.1) mmol/L Chloride 106 (98-107) mmol/L Carbon Dioxide 25 (21-32) mmol/L Anion Gap 7 (3-11) BUN 16 (6-23) mg/dl Creatinine 0.73 (0.6-1.2) mg/dl Est Cr Clr Drug Dosing 78.5 ml/min Est GFR ( Amer) 97.4 ml/min Est GFR (Non-Af Amer) 84.0 ml/min BUN/Creatinine Ratio 21.9 H (10-20) Glucose 113 H (70-99(Fasting)) mg/dl Estimat Average Glucose 126 mg/dl Hemoglobin A1c 6.0 H (4.5-5.6) % Calcium 7.9 L (8.6-10.3) mg/dl Phosphorus 2.6 (2.5-4.9) mg/dl Magnesium 2.1 (1.7-2.4) mg/dl Diagnostic Findings Tibia/Fibula X-Ray 01/04/23 00:00 INTRAOPERATIVE RADIOGRAPHS CLINICAL HISTORY: Open reduction and internal fixation of the left tibia. Fluoro time: 192 seconds. Ka,r: 12.04 mGy FINDINGS: 9 spot fluoroscopic views of the left tibia and fibula are correlated with radiographs performed the same day 01/04/2023. An intermedullary nail has been placed transfixing a spiral fracture of the distal tibia. Near-anatomic alignment is restored. There are at least 3 cortical lag screws transfixing the distal end of the nail. 2 cortical screws transfix the proximal end of the nail. The orthopedic hardware appears intact. A buttress plate is again seen along the lateral cortex of the distal fibula. There is also a spiral fracture of the distal fibular shaft. IMPRESSION: Intraoperative images from open reduction and internal fixation of a left tibial fracture as above. Electronically signed by: Ahmet Rojas M.D. 01/04/2023 5:44 PM
--- NOTE | 2023-01-05 10:57 | XRay Report ---
LEFT TIBIA AND FIBULA 2 VIEWS CLINICAL HISTORY: Postoperative examination. FINDINGS: AP and lateral views of the left tibia and fibula are compared to study dated 01/04/2023. Im age medullary nail has been placed transfixing a spiral fracture of the distal tibial shaft. Near-hortensia tomic alignment is restored. There is only mild offset of the fragments. 2 cortical screws transfix t he proximal end of the nail and 3 cortical screws transfix the distal and the nail. There is also a c omminuted and mildly displaced spiral fracture of the mid to distal fibular shaft. Alignment is modes tly improved from previous. A buttress plate is again seen along the lateral cortex of the distal fib tram. Soft tissue edema is seen throughout the calf. Skin clips project over the proximal calf as well as the ankle. The knee and ankle joints are grossly maintained. IMPRESSION: 1. Distal tibial and fibular fractures with postsurgical change as above. 2. Soft tissue edema is present throughout the calf. Electronically signed by: Ahmet Rojas M.D. 01/05/2023 10:55 AM
[2023-01-05] MEDS: HYDROmorphone INJ 0.5 MG/0.5 ML SYR IV PRN (19:49)
[2023-01-05] MEDS: SENNA 8.6 MG TAB PO SCH (19:54)
[2023-01-06] MEDS: oxyCODONE HCL IR 5 MG TAB (IMMEDIATE RELEASE) PO PRN ×5 (01:11→21:23)
[2023-01-06] MEDS: ACETAMINOPHEN 500 MG TAB PO SCH ×3 (01:11→17:10)
[2023-01-06] MEDS: ENOXAPARIN INJ 30 MG/0.3 ML SYR SQ SCH ×2 (05:18→17:09)
[2023-01-06] MEDS: HYDROmorphone INJ 0.5 MG/0.5 ML SYR IV PRN (05:21)
[2023-01-06 07:33] LABS: Hematocrit (blood only) 30.3 % (37.0-47.0); Hemoglobin 9.9 g/dl (12.0-16.0); Mean Corpuscular Hemoglobin 32.8 pg (25.0-34.0); Mean Corpuscular Hgb Conc 32.7 g/dL (32.0-36.0); Mean Corpuscular Volume 100.3 fL (80.0-100.0); Platelet Count 166 K/uL (130-400); RDW Coefficient of Variation 14.1 % (11.5-14.5); RDW Standard Deviation 52.1 fL (36.4-46.3); Red Blood Count 3.02 M/uL (4.20-5.40)
--- NOTE | 2023-01-06 08:35 | Hospitalist Progress Note ---
Date of Service January 06, 2023 Assessment & Plan (1) Closed fracture of left tibia and fibula: (2) Asthma: Plan: This is a 67-year-old white female who presents with mechanical fall and left tibia, fibular fracture. 1. Mechanical fall with a left tibia, fibular fracture: Orthopedics consulted. Pt is now s/p surg. repair - status postintramedullary (IM) nailing of a left distal tibia fracture,on 01/04/2023 w/ Dr. Bello. Pain control,pt/ot, DVT ppx as per orthopedics. 2. History of asthma, currently not in exacerbation: Continue home inhalers. 3. Hypertension:losartan resumed. monitor BP 4. History of factor V Leiden mutation. DVT prophylaxis:lovenox, as per orthopedics. DISPOSITION: PT/OT prior to discharge Admission and Anticipated Discharge Date Admission Date: January 04, 2023 Subjective Pt seen in follow up of tib/fib fx s/p surg. repair Currently laying in bed, in no acute distress Overall feels well, except for some pain in her left knee/ LLE LLE w/ surgical dressings, Sy wraps, she is able to wiggle her toes on her left lower extremity She is awake alert oriented, pain is fairly well controlled. Denies any fevers chills chest pain shortness of breath, denies any abdominal pain nausea or vomiting. Says she was little dizzy yesterday when she was trying to get up from bed. Says it improved when she tried again later. Says walker is too big for her to use. RN at the bedside and aware. Review of Systems Review of Systems: All systems reviewed & are unremarkable except as noted in Subjective Physical Exam Physical Exam: GENERAL: WD/WN, not in acute distress. HEENT: NC/AT. Extraocular muscles intact.No facial droop. NECK: No JVD. No neck masses. CARDIOVASCULAR: S1 and S2 heard. Regular rate and rhythm. No murmur, no gallop. RESPIRATORY: Normal AP diameter. No accessory muscle use. No wheezing or crackles. ABDOMEN: Soft, bowel sounds present, nontender, no distention. NEURO: Alert and oriented. Speech is clear. No facial droop. Obeys simple commands. EXTREMITIES: Left lower extremity in surgical dressings and sy wrap, able to wiggle toes of LLE Results & Data Results & Data Vital Signs (Past 12 Hours) Vital Signs Temp Pulse Resp BP Pulse Ox O2 Del Method 01/06/23 07:25 37.1 C 74 16 157/94 H 95 Room Air 01/05/23 22:21 36.8 C 85 16 128/70 95 Room Air Laboratory Results 01/06/23 01/06/23 Range/Units 07:05 07:05 WBC 5.70 (4.8-10.8) K/ul RBC 3.02 L (4.20-5.40) M/uL Hgb 9.9 L (12.0-16.0) g/dl Hct 30.3 L (37.0-47.0) % MCV 100.3 H (80.0-100.0) fL MCH 32.8 (25.0-34.0) pg MCHC 32.7 (32.0-36.0) g/dL RDW Std Deviation 52.1 H (36.4-46.3) fL RDW Coeff of Bladimir 14.1 (11.5-14.5) % Plt Count 166 (130-400) K/uL MPV 10.0 (9.4-12.4) fL Sodium Pending Potassium Pending Chloride Pending Carbon Dioxide Pending Anion Gap Pending BUN Pending Creatinine Pending Est Cr Clr Drug Dosing Pending Est GFR ( Amer) Pending Est GFR (Non-Af Amer) Pending BUN/Creatinine Ratio Pending Glucose Pending Calcium Pending Medications Administered Current Inpatient Medications Acetaminophen (Acetaminophen 325 Mg Tab) 650 mg PO Q6H PRN PRN Reason: Fever or Headache Stop: 02/03/23 02:07 Acetaminophen (Acetaminophen 500 Mg Tab) 1,000 mg PO Q8H [facility] Stop: 02/03/23 16:59 Last Admin: 01/06/23 01:11 Dose: 1,000 mg Albuterol (Albuterol Hfa 8 Gm Inhaler) 1 puffs INH Q4H PRN PRN Reason: wheezing Stop: 02/03/23 05:52 Aspirin (Aspirin 81 Mg Chew) 81 mg PO DAILY [facility] Stop: 02/03/23 08:59 Last Admin: 01/05/23 08:30 Dose: 81 mg Bisacodyl (Bisacodyl 10 Mg Supp) 10 mg UT DAILY PRN PRN Reason: Constipation Stop: 02/03/23 16:18 Docusate Sodium (Docusate Sodium 100 Mg Cap) 100 mg PO BID [facility] Stop: 02/03/23 08:59 Last Admin: 01/05/23 19:54 Dose: 100 mg Docusate Sodium (Docusate Sodium 100 Mg Cap) 100 mg PO BID [facility] Stop: 02/03/23 20:59 Last Admin: 01/05/23 19:54 Dose: Not Given Enoxaparin Sodium (Enoxaparin Inj 30 Mg/0.3 Ml Syr) 30 mg SQ Q12H [facility] Stop: 02/04/23 05:59 Last Admin: 01/06/23 05:18 Dose: 30 mg Fluticasone/Vilanterol (Fluticasone/Vilanterol 100/25mcg 14 Puffs/Inhaler) 1 puffs INH DAILY [facility] Stop: 02/04/23 08:59 Last Admin: 01/05/23 08:29 Dose: 1 puffs Hydralazine HCl (Hydralazine Hcl 20 Mg/Ml Vial) 7.5 mg IV Q6H PRN PRN Reason: Hypertension Stop: 02/03/23 05:52 Hydromorphone HCl (Hydromorphone Inj 0.5 Mg/0.5 Ml Syr) 0.5 mg IV Q4H PRN PRN Reason: Pain or Pre PT Stop: 01/18/23 16:18 Last Admin: 01/06/23 05:21 Dose: 0.5 mg Losartan Potassium (Losartan Potassium 25 Mg Tab) 75 mg PO DAILY [facility] Stop: 02/04/23 08:59 Last Admin: 01/05/23 08:29 Dose: 75 mg Magnesium Hydroxide (Magnesium Hydroxide Susp 30 Ml Udc) 30 ml PO Q6H PRN PRN Reason: Constipation Stop: 02/03/23 16:18 Metoclopramide HCl (Metoclopramide Hcl Inj 5 Mg/Ml 2 Ml Vial) 10 mg IV Q6H PRN PRN Reason: Nausea And Vomiting Stop: 02/03/23 16:18 Multivitamins (Multivitamin Tab) 1 tab PO QAM [facility] Stop: 02/04/23 08:59 Last Admin: 01/05/23 08:29 Dose: 1 tab Naloxone HCl (Naloxone Hcl 0.4 Mg/1 Ml Vial/Carp) 0.1 mg IV Q5M PRN PRN Reason: Oversedation/Resp Depression Stop: 02/03/23 16:18 Ondansetron HCl (Ondansetron Inj 2 Mg/Ml 2 Ml Vial) 4 mg IV Q6H PRN PRN Reason: Nausea/Vomiting Stop: 02/03/23 02:07 Ondansetron HCl (Ondansetron Inj 2 Mg/Ml 2 Ml Vial) 4 mg IV Q6H PRN PRN Reason: Nausea And Vomiting Stop: 02/03/23 16:18 Oxycodone HCl (Oxycodone Hcl Ir 5 Mg Tab (Immediate Release)) 5 - 10 mg PO Q4H PRN PRN Reason: Pain or Pre PT Stop: 01/18/23 16:18 Last Admin: 01/06/23 07:57 Dose: 10 mg Sennosides (Senna 8.6 Mg Tab) 17.2 mg PO HS [facility] Stop: 02/03/23 20:59 Last Admin: 01/05/23 19:54 Dose: 17.2 mg Tramadol HCl (Tramadol Hcl 50 Mg Tablet) 50 - 100 mg PO Q4H PRN PRN Reason: Pain & Pre PT Stop: 02/03/23 16:18
[2023-01-06] MEDS: DOCUSATE SODIUM 100 MG CAP PO SCH ×4 (08:49→21:35)
[2023-01-06] MEDS: FLUTICASONE/VILANTEROL 100/25MCG 14 PUFFS/INHALER INH SCH (08:50)
[2023-01-06] MEDS: ASPIRIN 81 MG CHEW PO SCH (08:51)
[2023-01-06] MEDS: LOSARTAN POTASSIUM 25 MG TAB PO SCH (08:52)
[2023-01-06] MEDS: MULTIVITAMIN TAB PO SCH (08:53)
[2023-01-06 09:43] LABS: Calcium 8.1 mg/dl (8.6-10.3); Potassium 3.9 mmol/L (3.5-5.1)
[2023-01-06 09:49] LABS: BUN Creatinine Ratio 21.1 (10-20); Creatinine Clr Calc Pharmacy 80.7 ml/min; Est GFR (African American) 100.7 ml/min; Est GFR (Non-African American) 86.9 ml/min
--- NOTE | 2023-01-06 09:56 | Progress Notes ---
DATE OF SERVICE: 01/06/2023 Resting comfortably in bed. She has received PT. No major problems are noted. Pain is well control led. She is afebrile. Her vital signs are stable. White count 6, hemoglobin 10, hematocrit is 30, platelets are 166. Her PRP is pending. Tib-fib x-rays show good alignment of the tibia and fibula f ractures with intact hardware. Dressing removed. Incisions are benign. Swelling is mild to moderate. There is one fracture bliste r just medial to the fracture site incision, 1 x 3 cm benign in appearance. PT pulse nonpalpable, DP pulse is 1+. Sensation intact throughout the foot and she has 5 to 5-/5 ankle and toe plantar flexi on, dorsiflexion, inversion and eversion strength. IMPRESSION: Likely pathological fracture of the left tibia and fibula secondary to osteoporosis, sta tus post intramedullary nailing. PLAN: My Findings are discussed. Plan is PT and OT. Nonweightbearing on the left. Continue Loveno x for DVT prophylaxis. We will discontinue her [place] catheter and get some x-rays of the ankle. Job ID: [id number]
--- NOTE | 2023-01-06 10:40 | XRay Report ---
XR ankle LT min 3V routine CLINICAL HISTORY: fracture COMPARISON: Left tibia and fibula radiographs January 04, 2023 and January 05, 2023. FINDINGS: There are stable postoperative findings following open reduction and internal fixation of the distal left tibial fracture with intramedullary nailing. Fracture is in near anatomic alignment a nd unchanged since prior exam. Hardware is intact. There are skin aleksey. Previous distal left fibul ar internal fixation is noted. The mid to distal diaphyseal fracture of the left tibia is unchanged i n alignment since prior exam. No new fractures are present. Expected soft tissue swelling is noted. IMPRESSION: Stable postoperative findings following internal fixation of the left tibial fracture. ACT 112: Negative or not required by law. Electronically signed by: Abdelrahman Green M.D. 01/06/2023 10:37 AM
[2023-01-06] MEDS: SENNA 8.6 MG TAB PO SCH (21:23)
[2023-01-07] MEDS: ACETAMINOPHEN 500 MG TAB PO SCH ×2 (01:11→09:03)
[2023-01-07] MEDS: oxyCODONE HCL IR 5 MG TAB (IMMEDIATE RELEASE) PO PRN ×4 (01:12→14:08)
[2023-01-07] MEDS: ENOXAPARIN INJ 30 MG/0.3 ML SYR SQ SCH (05:40)
[2023-01-07 08:20] LABS: BUN Creatinine Ratio 23.4 (10-20); Calcium 8.2 mg/dl (8.6-10.3); Creatinine Clr Calc Pharmacy 89.6 ml/min; Est GFR (African American) 105.5 ml/min; Phosphorus 2.7 mg/dl (2.5-4.9); Potassium 3.8 mmol/L (3.5-5.1)
[2023-01-07 08:31] LABS: Hematocrit (blood only) 30.9 % (37.0-47.0); Hemoglobin 10.1 g/dl (12.0-16.0); Mean Corpuscular Hemoglobin 32.8 pg (25.0-34.0); Mean Corpuscular Hgb Conc 32.7 g/dL (32.0-36.0); Mean Corpuscular Volume 100.3 fL (80.0-100.0); Mean Platelet Volume 10.4 fL (9.4-12.4); Platelet Count 194 K/uL (130-400); RDW Coefficient of Variation 13.8 % (11.5-14.5); RDW Standard Deviation 50.6 fL (36.4-46.3); Red Blood Count 3.08 M/uL (4.20-5.40); White Blood Count 4.95 K/ul (4.8-10.8)
[2023-01-07] MEDS: FLUTICASONE/VILANTEROL 100/25MCG 14 PUFFS/INHALER INH SCH (09:00)
[2023-01-07] MEDS: DOCUSATE SODIUM 100 MG CAP PO SCH ×2 (09:01→09:04)
[2023-01-07] MEDS: LOSARTAN POTASSIUM 25 MG TAB PO SCH (09:02)
[2023-01-07] MEDS: MULTIVITAMIN TAB PO SCH (09:02)
[2023-01-07] MEDS: ASPIRIN 81 MG CHEW PO SCH (09:03)
--- NOTE | 2023-01-07 10:22 | Orthopedic Progress Note ---
Date of Service January 07, 2023 Assessment & Plan (1) Closed fracture of left tibia and fibula: Plan: Patient is doing well postoperative day #3 status post intramedullary (IM) nailing of a left distal tibia fracture Continue with nonweightbearing on left lower extremity. May ambulate with walker on right lower extremity full weightbearing. May continue to use ice and control pain per medication regimen ordered she will be provided pain medication upon discharge continue with Lovenox for DVT prophylaxis patient was advised she will be given a prescription sent to pharmacy and to be picked up to start when she returns home. She is comfortable with providing this injection herself. Anticipate discharge possibly today if she does well in physical therapy and deemed safe to return home. I will discuss further with Dr. Smith prior to discharging patient. She is scheduled on for dressing change with Dr. Neves at 8 AM on 01/09/2023. Patient is aware. Present on Admission?: Yes Admission and Anticipated Discharge Date Admission Date: January 04, 2023 Subjective Pt is a 67-year-old status post a left tibia intramedullary nail fixation on 01/04/2023. She is postop day 3 seen bedside this AM. She is alert and oriented x3 in good spirits. She states she did participate in physical therapy yesterday and this went pretty well for her she feels she is able to go home hopefully today. She reports she does have a walker at home and lives on the main floor of home. She states her pain is approximately 4 out of 10 and seems to be controlled with pain medication. She denies any paresthesia in the left lower extremity. She has been able to eat denies any vomiting or nausea. She denies any calf pain, chest pain, shortness of breath, dizziness or fever or chills. Review of Systems Review of Systems: Please refer to HPI Physical Exam Physical Exam: General: Patient is alert and oriented x3 no acute distress pleasant conversive and in good spirits Integumentary/musculoskeletal: Left lower extremity is elevated on pillows. Dressing is intact negative for any soiling. Toes are exposed normal in color and temperature. Negative for edema. She is able to fully flex and extend toes move ankle dorsiflexion plantarflexion. Sensation is intact over all toes. She is able to flex the knee to approximately 90 degrees and able to fully extend. Left lower extremity is neurovascular intact. Eyes: EOM intact bilaterally ENMT: external ear and nose normal, oropharynx normal Respiratory: normal respiratory effort Results & Data Vital Signs (Past 12 Hours) Vital Signs Temp Pulse Resp BP Pulse Ox O2 Del Method 01/07/23 07:23 36.9 C 74 16 130/72 95 Room Air Laboratory Results 01/07/23 01/07/23 Range/Units 07:36 07:36 WBC 4.95 (4.8-10.8) K/ul RBC 3.08 L (4.20-5.40) M/uL Hgb 10.1 L (12.0-16.0) g/dl Hct 30.9 L (37.0-47.0) % MCV 100.3 H (80.0-100.0) fL MCH 32.8 (25.0-34.0) pg MCHC 32.7 (32.0-36.0) g/dL RDW Std Deviation 50.6 H (36.4-46.3) fL RDW Coeff of Bladimir 13.8 (11.5-14.5) % Plt Count 194 (130-400) K/uL MPV 10.4 (9.4-12.4) fL Sodium 137 (136-145) mmol/L Potassium 3.8 (3.5-5.1) mmol/L Chloride 103 (98-107) mmol/L Carbon Dioxide 29 (21-32) mmol/L Anion Gap 5 (3-11) BUN 15 (6-23) mg/dl Creatinine 0.64 (0.6-1.2) mg/dl Est Cr Clr Drug Dosing 89.6 ml/min Est GFR ( Amer) 105.5 ml/min Est GFR (Non-Af Amer) 91.0 ml/min BUN/Creatinine Ratio 23.4 H (10-20) Glucose 101 H (70-99(Fasting)) mg/dl Calcium 8.2 L (8.6-10.3) mg/dl Phosphorus 2.7 (2.5-4.9) mg/dl Magnesium 2.0 (1.7-2.4) mg/dl
--- NOTE | 2023-01-07 11:27 | Hospitalist Progress Note ---
Date of Service January 07, 2023 Assessment & Plan (1) Closed fracture of left tibia and fibula: (2) Asthma: Plan: This is a 67-year-old white female who presents with mechanical fall and left tibia, fibular fracture. 1. Mechanical fall with a left tibia, fibular fracture: Orthopedics consulted. Pt is now s/p surg. repair - status postintramedullary (IM) nailing of a left distal tibia fracture,on 01/04/2023 w/ Dr. Bello. Pain control,pt/ot, DVT ppx as per orthopedics. 2. History of asthma, currently not in exacerbation: Continue home inhalers. 3. Hypertension:losartan resumed. monitor BP 4. History of factor V Leiden mutation. DVT prophylaxis:lovenox, as per orthopedics. DISPOSITION: PT/OT prior to discharge Admission and Anticipated Discharge Date Admission Date: January 04, 2023 Subjective Pt seen in follow up of tib/fib fx s/p surg. repair Currently laying in bed, in no acute distress Overall feels well, also reports doing better with PT She is awake alert oriented, pain is fairly well controlled. Denies any fevers chills chest pain shortness of breath, denies any abdominal pain nausea or vomiting. She is inquiring about discharge. Review of Systems Review of Systems: All systems reviewed & are unremarkable except as noted in Subjective Physical Exam Physical Exam: GENERAL: WD/WN, not in acute distress. HEENT: NC/AT. Extraocular muscles intact.No facial droop. NECK: No JVD. No neck masses. CARDIOVASCULAR: S1 and S2 heard. Regular rate and rhythm. No murmur, no gallop. RESPIRATORY: Normal AP diameter. No accessory muscle use. CTAB. No wheezing or crackles. ABDOMEN: Soft, bowel sounds present, nontender, no distention. NEURO: Alert and oriented. Speech is clear. No facial droop. Obeys simple commands. EXTREMITIES: Left lower extremity in surgical dressings and doug wrap, able to wiggle toes of LLE Results & Data Results & Data Vital Signs (Past 12 Hours) Vital Signs Temp Pulse Resp BP Pulse Ox O2 Del Method 01/07/23 07:23 36.9 C 74 16 130/72 95 Room Air Laboratory Results 01/07/23 01/07/23 Range/Units 07:36 07:36 WBC 4.95 (4.8-10.8) K/ul RBC 3.08 L (4.20-5.40) M/uL Hgb 10.1 L (12.0-16.0) g/dl Hct 30.9 L (37.0-47.0) % MCV 100.3 H (80.0-100.0) fL MCH 32.8 (25.0-34.0) pg MCHC 32.7 (32.0-36.0) g/dL RDW Std Deviation 50.6 H (36.4-46.3) fL RDW Coeff of Bladimir 13.8 (11.5-14.5) % Plt Count 194 (130-400) K/uL MPV 10.4 (9.4-12.4) fL Sodium 137 (136-145) mmol/L Potassium 3.8 (3.5-5.1) mmol/L Chloride 103 (98-107) mmol/L Carbon Dioxide 29 (21-32) mmol/L Anion Gap 5 (3-11) BUN 15 (6-23) mg/dl Creatinine 0.64 (0.6-1.2) mg/dl Est Cr Clr Drug Dosing 89.6 ml/min Est GFR ( Amer) 105.5 ml/min Est GFR (Non-Af Amer) 91.0 ml/min BUN/Creatinine Ratio 23.4 H (10-20) Glucose 101 H (70-99(Fasting)) mg/dl Calcium 8.2 L (8.6-10.3) mg/dl Phosphorus 2.7 (2.5-4.9) mg/dl Magnesium 2.0 (1.7-2.4) mg/dl Medications Administered Current Inpatient Medications Acetaminophen (Acetaminophen 325 Mg Tab) 650 mg PO Q6H PRN PRN Reason: Fever or Headache Stop: 02/03/23 02:07 Acetaminophen (Acetaminophen 500 Mg Tab) 1,000 mg PO Q8H [facility] Stop: 02/03/23 16:59 Last Admin: 01/07/23 09:03 Dose: 1,000 mg Albuterol (Albuterol Hfa 8 Gm Inhaler) 1 puffs INH Q4H PRN PRN Reason: wheezing Stop: 02/03/23 05:52 Aspirin (Aspirin 81 Mg Chew) 81 mg PO DAILY [facility] Stop: 02/03/23 08:59 Last Admin: 01/07/23 09:03 Dose: 81 mg Bisacodyl (Bisacodyl 10 Mg Supp) 10 mg AL DAILY PRN PRN Reason: Constipation Stop: 02/03/23 16:18 Docusate Sodium (Docusate Sodium 100 Mg Cap) 100 mg PO BID [facility] Stop: 02/03/23 08:59 Last Admin: 01/07/23 09:01 Dose: 100 mg Docusate Sodium (Docusate Sodium 100 Mg Cap) 100 mg PO BID [facility] Stop: 02/03/23 20:59 Last Admin: 01/07/23 09:04 Dose: Not Given Enoxaparin Sodium (Enoxaparin Inj 30 Mg/0.3 Ml Syr) 30 mg SQ Q12H [facility] Stop: 02/04/23 05:59 Last Admin: 01/07/23 05:40 Dose: 30 mg Fluticasone/Vilanterol (Fluticasone/Vilanterol 100/25mcg 14 Puffs/Inhaler) 1 puffs INH DAILY [facility] Stop: 02/04/23 08:59 Last Admin: 01/07/23 09:00 Dose: 1 puffs Hydralazine HCl (Hydralazine Hcl 20 Mg/Ml Vial) 7.5 mg IV Q6H PRN PRN Reason: Hypertension Stop: 02/03/23 05:52 Hydromorphone HCl (Hydromorphone Inj 0.5 Mg/0.5 Ml Syr) 0.5 mg IV Q4H PRN PRN Reason: Pain or Pre PT Stop: 01/18/23 16:18 Last Admin: 01/06/23 05:21 Dose: 0.5 mg Losartan Potassium (Losartan Potassium 25 Mg Tab) 75 mg PO DAILY [facility] Stop: 02/04/23 08:59 Last Admin: 01/07/23 09:02 Dose: 75 mg Magnesium Hydroxide (Magnesium Hydroxide Susp 30 Ml Udc) 30 ml PO Q6H PRN PRN Reason: Constipation Stop: 02/03/23 16:18 Metoclopramide HCl (Metoclopramide Hcl Inj 5 Mg/Ml 2 Ml Vial) 10 mg IV Q6H PRN PRN Reason: Nausea And Vomiting Stop: 02/03/23 16:18 Multivitamins (Multivitamin Tab) 1 tab PO QAM [facility] Stop: 02/04/23 08:59 Last Admin: 01/07/23 09:02 Dose: 1 tab Naloxone HCl (Naloxone Hcl 0.4 Mg/1 Ml Vial/Carp) 0.1 mg IV Q5M PRN PRN Reason: Oversedation/Resp Depression Stop: 02/03/23 16:18 Ondansetron HCl (Ondansetron Inj 2 Mg/Ml 2 Ml Vial) 4 mg IV Q6H PRN PRN Reason: Nausea/Vomiting Stop: 02/03/23 02:07 Ondansetron HCl (Ondansetron Inj 2 Mg/Ml 2 Ml Vial) 4 mg IV Q6H PRN PRN Reason: Nausea And Vomiting Stop: 02/03/23 16:18 Oxycodone HCl (Oxycodone Hcl Ir 5 Mg Tab (Immediate Release)) 5 - 10 mg PO Q4H PRN PRN Reason: Pain or Pre PT Stop: 01/18/23 16:18 Last Admin: 01/07/23 10:12 Dose: 10 mg Sennosides (Senna 8.6 Mg Tab) 17.2 mg PO [facility] Stop: 02/03/23 20:59 Last Admin: 01/06/23 21:23 Dose: 17.2 mg Tramadol HCl (Tramadol Hcl 50 Mg Tablet) 50 - 100 mg PO Q4H PRN PRN Reason: Pain & Pre PT Stop: 02/03/23 16:18 Last Admin: 01/06/23 19:52 Dose: 50 mg
--- NOTE | 2023-01-07 15:37 | Discharge Summary ---
Date of Service January 07, 2023 Admission HPI Per Admitting Provider Patient is a 67-year-old female who was admitted on our services for a left distal tibia and fibular shaft fracture. She explains that yesterday she was is sitting and relaxed in her chair and when she went to get up she may have twisted the ankle however she had no fall. She states she had increased pain and was unable to weight-bear. She was trying just to see if it would improve however she states the pain seemed to get worse and was unable to control it. She was transported to the emergency department where she was examined and had imaging. She was found to have a comminuted distal tibia and fibular shaft fracture. This was reduced and splinted and admitted on our services. She states that she has no pain in the left ankle at this time. She states if she tries to move the legs she has pain and rates a 7/10. She does report of having a previous fracture to approximately 30 years ago that was repaired by Dr. Smith. She states she has not had any previous issues with this prior to the fracture yesterday. She denies any paresthesia or swelling or open areas. She states she had no bruising upon transitioning to the ED. 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 She does report having a history of osteoporosis previous treatment with Reclast years ago however she is just taken oral vitamin D and calcium. She has a history of hypertension controlled on losartan that she takes in the evening. She has a history of asthma per patient this is controlled. She denies any frequent use of her inhaler, coughing, wheezing or shortness of breath. She denies any history of MRSA latex allergies, DVT, PE or bleeding disorders. She has been NPO since 9pm 01/03/23. Takes a 81 mg aspirin daily however this was not given to patient last night. Spoke with nursing, hospitalist aware patient is being taken to the OR today and will dictate his note. Admission Exam (Per Admitting) Constitutional well developed, well nourished, well groomed, cooperative and comfortable Eyes EOM intact bilaterally ENMT external ear and nose normal, oropharynx normal Respiratory normal respiratory effort Discharge Data Consultations 01/04/23 02:08 Consult Internal Medicine Routine Procedures Performed Operation Date: 01/04/23 12:00 Actual Procedures p Open Reduction with Intramedullary Nailing of the Left Tibia(Left) - Brandin Bello MD Hospital Course (1) Closed fracture of left tibia and fibula: Patient has done well postoperatively and during her hospital length of stay. Her pain has been well controlled and had an uneventful length of stay. She was seen postoperatively days 0 through day 3. She had a dressing change done on postop day 2. Her incision appeared well approximated negative for erythema or drainage. The dressings were applied. She has been well controlled on oral medication for pain. She has been participating in physical therapy and doing well. Therapist feel she is safe to return home. She was advised on maintaining nonweightbearing on the left lower extremity. She reports having a walker at home. She has been on Lovenox injections twice a day for DVT prophylaxis and will continue this on upon returning home. Prescription was sent to her pharmacy. She was provided prescriptions for pain control including oxycodone, tramadol and use of [id number] Tylenol. She was provided with a stool softener. She is scheduled for an outpatient physical therapy appointment on 01/15. She is scheduled to be seen in our office on 01/09. Patient is aware of these appointments. Patient feels comfortable with returning home with significant other. She was provided with instructions and our office number to call with having any questions or concerns. Discharge Instructions Per d/c papers
--- NOTE | 2023-01-10 06:58 | Coding Query ---
To promote full compliance with coding requirements relating to patient care, physician participation is requested in all cases of human resources benefits specialist uncertainty. Please assist us with the question(s) below: Coding Question(s): It was noted throughout the record that the patient has/is suspected to have osteoporosis. According to coding guidelines "a code for osteoporotic fracture, and not a traumatic fracture, should be used for any patient with known osteoporosis who suffers a fracture, even if the patient had a minor fall or trauma, if that fall or trauma would not usually break a normal, healthy bone." Please indicate below the type of fracture: Physician's Response(s): ( ) Osteoporotic fracture of (Tibial fibula fracture ) ( ) Traumatic fracture of (Tibial fibula fracture) ( ) Other, please specify ( ) Unable to be determined MTDD
--- NOTE | 2023-01-14 07:14 | Coding Query ---
To promote full compliance with coding requirements relating to patient care, physician participation is requested in all cases of remote inpatient coder uncertainty. Please assist us with the question(s) below: Coding Question(s): It was noted throughout the record that the patient has/is suspected to have osteoporosis. According to coding guidelines "a code for osteoporotic fracture, and not a traumatic fracture, should be used for any patient with known osteoporosis who suffers a fracture, even if the patient had a minor fall or trauma, if that fall or trauma would not usually break a normal, healthy bone." Please indicate below the type of fracture: Physician's Response(s): ( X ) Osteoporotic fracture of (tibia and fibula fracture) ( ) Traumatic fracture of (tibia and fibula fracture) ( ) Other, please specify ( ) Unable to be determined MTDD
== END 2023-01-07 15:08 | disposition home or self-care (01) | DRG 493 ==
LOC: ED 21:25 → 3E 01-04 00:14